=== PATIENT | male | born 1955 | race Caucasian/White ===

== ENCOUNTER 2018-03-01 09:00 | Inpatient (IN) | payer OTHER ==
[2018-03-01] MEDS ORDERED: BALSAM PERU/CASTOR OIL 60 GM TUBE TOP (12:00)
[2018-03-01] MEDS ORDERED: ALBUMIN HUMAN 25% 100 ML IV (12:00)
[2018-03-01] MEDS ORDERED: DEXTROSE 50% 50 ML SYRINGE IV (12:30)
[2018-03-01] MEDS: INSULIN HUMAN REGULAR 100 UNIT in SOD CHLORIDE 0.9% 99 ML IV ×3 (13:28→21:38)
[2018-03-01] MEDS ORDERED: SILVER SULFADIAZINE 1% 25 GM CR TOP (13:30)
[2018-03-01] MEDS: ACCU-CHEK XX ×12 (13:30→23:30)
[2018-03-01] MEDS: ALBUTEROL/IPRATROPIUM (NEB) 3 ML AMP HHN ×2 (14:00→19:08)
[2018-03-01 14:18] LABS: ADD MAN DIFF? NO
[2018-03-01 14:25] LABS: WHITE BLOOD COUNT 8.9 10^3/ul (4.8-10.8)
[2018-03-01 14:25] LABS: ABNORMAL IP MESSAGE 1; BASOPHILS % 0.1 % (0.0-2.0); EOSINOPHILS # 0.6 10^3/ul (0.0-0.5); EOSINOPHILS % 7.2 % (0.0-7.0); HEMATOCRIT 20.4 % (42.0-52.0); LYMPHOCYTES # 2.1 10^3/ul (0.8-2.9); LYMPHOCYTES % 23.4 % (15.0-51.0); MEAN CORPUSCULAR HEMOGLOBIN 30.3 pg (29.0-33.0); MEAN CORPUSCULAR HGB CONC 32.4 g/dl (32.0-37.0); MEAN CORPUSCULAR VOLUME 93.6 fl (82.0-101.0); MONOCYTE # 0.8 10^3/ul (0.3-0.9); NEUTROPHIL # 5.3 10^3/ul (1.6-7.5); NEUTROPHILS % 59.8 % (39.0-77.0); NUCLEATED RED BLOOD CELLS% 0.2 /100WBC (0.0-0.0); POSITIVE DIFF @See below; RED BLOOD COUNT 2.18 10^6/ul (4.70-6.10); RED CELL DISTRIBUTION WIDTH 19.3 % (11.5-14.5)
[2018-03-01 14:34] LABS: LACTIC ACID 1.9 mmol/L (0.5-2.0)
[2018-03-01 14:35] LABS: HEMOGLOBIN 6.6 g/dl (14.0-18.0)
[2018-03-01 14:36] LABS: PLATELET COUNT 17 10^3/UL (140-415)
[2018-03-01 14:43] LABS: ALANINE AMINOTRANSFERASE 50 IU/L (13-69); ALBUMIN 2.5 g/dl (3.3-4.9); ALBUMIN/GLOBULIN RATIO 0.89; ALKALINE PHOSPHATASE 550 IU/L (42-121); ANION GAP 13 (8-16); ASPARTATE AMINO TRANSFERASE 53 IU/L (15-46); BILIRUBIN,INDIRECT 0.2 mg/dl (0-1.1); BILIRUBIN,TOTAL 0.2 mg/dl (0.2-1.3); BLOOD UREA NITROGEN 101 mg/dl (7-20); CALCIUM 8.9 mg/dl (8.4-10.2); CARBON DIOXIDE 33 mmol/L (21-31); CHLORIDE 102 mmol/L (97-110); CREATININE 0.88 mg/dl (0.61-1.24); INR 1.14; MAGNESIUM 3.5 mg/dl (1.7-2.5); PHOSPHORUS 4.8 mg/dl (2.5-4.9); POTASSIUM 3.3 mmol/L (3.5-5.1); PROTIME 14.8 Sec (11.9-14.9); PT RATIO 1.2; SODIUM 145 mmol/L (135-144); TOTAL PROTEIN 5.3 g/dl (6.1-8.1)
[2018-03-01] MEDS: ARTIFICIAL TEARS 15 ML OPH BOTH EYES ×3 (14:44→21:02)
[2018-03-01] MEDS: SOD CHLORIDE 0.9% 1,000 ML IV (14:50)
[2018-03-01 15:00] LABS: GLUCOSE 431 mg/dl (70-220)
[2018-03-01] MEDS: SOD CHLORIDE 0.9% 250 ML IV* (15:58)
[2018-03-01] MEDS: SILVER SULFADIAZINE 1% 25 GM CR TOP (17:29)
[2018-03-01] MEDS: PANTOPRAZOLE 40 MG INJ IV (18:28)
[2018-03-01] MEDS: LACTULOSE 30ML CUP GTB (21:03)
[2018-03-01] MEDS: BALSAM PERU/CASTOR OIL 60 GM TUBE TOP (21:03)
[2018-03-01] MEDS: RIFAXIMIN 550 MG TAB PO (21:03)
[2018-03-01] MEDS: DIPHENHYDRAMINE 1%/ZINC 28.3 GM CR TOP (21:03)
[2018-03-01] MEDS: CHLORHEXIDINE GLUCONATE 15 ML UD CUP MT (21:03)
[2018-03-01] MEDS: ACYCLOVIR 400 MG TAB GTB (21:04)
[2018-03-01] MEDS: METOPROLOL 25 MG TAB GTB (21:04)
[2018-03-01] MEDS: MICONAZOLE 2% 30 GM CR TOP (21:04)
[2018-03-01] MEDS: ZOLPIDEM 5 MG TAB PO (21:04)
[2018-03-01 21:54] LABS: TYPE AND SCREEN 1
[2018-03-02] MEDS: ACCU-CHEK XX ×9 (00:38→09:30)
[2018-03-02] MEDS: DEXTROSE 50% 50 ML SYRINGE IV (00:41)
[2018-03-02] MEDS: ALBUTEROL/IPRATROPIUM (NEB) 3 ML AMP HHN ×4 (01:23→19:25)
[2018-03-02 05:37] LABS: ADD MAN DIFF? NO
[2018-03-02 05:47] LABS: BASOPHILS % 0.2 % (0.0-2.0); EOSINOPHILS # 0.7 10^3/ul (0.0-0.5); EOSINOPHILS % 5.3 % (0.0-7.0); HEMATOCRIT 25.5 % (42.0-52.0); HEMOGLOBIN 8.5 g/dl (14.0-18.0); LYMPHOCYTES # 3.2 10^3/ul (0.8-2.9); LYMPHOCYTES % 25.1 % (15.0-51.0); MEAN CORPUSCULAR HEMOGLOBIN 30.4 pg (29.0-33.0); MEAN CORPUSCULAR HGB CONC 33.3 g/dl (32.0-37.0); MEAN CORPUSCULAR VOLUME 91.1 fl (82.0-101.0); MEAN PLATELET VOLUME 10.4 fl (7.4-10.4); MONOCYTE # 1.1 10^3/ul (0.3-0.9); MONOCYTES % 8.9 % (0.0-11.0); NEUTROPHIL # 7.6 10^3/ul (1.6-7.5); NEUTROPHILS % 60.1 % (39.0-77.0); NUCLEATED RED BLOOD CELLS% 0.3 /100WBC (0.0-0.0); PLATELET COUNT 120 10^3/UL (140-415); RED CELL DISTRIBUTION WIDTH 17.5 % (11.5-14.5)
[2018-03-02 05:47] LABS: WHITE BLOOD COUNT 12.6 10^3/ul (4.8-10.8)
[2018-03-02] MEDS: PANTOPRAZOLE 40 MG INJ IV ×2 (05:55→20:30)
[2018-03-02] MEDS: LEVOTHYROXINE 25 MCG TAB GTB (05:55)
[2018-03-02] MEDS: FUROSEMIDE 40 MG TAB PO ×2 (06:00→17:16)
[2018-03-02 06:30] LABS: ANION GAP 13 (8-16); BLOOD UREA NITROGEN 95 mg/dl (7-20); CALCIUM 9.1 mg/dl (8.4-10.2); CARBON DIOXIDE 31 mmol/L (21-31); CHLORIDE 107 mmol/L (97-110); GLUCOSE 82 mg/dl (70-220); MAGNESIUM 3.5 mg/dl (1.7-2.5); PHOSPHORUS 4.7 mg/dl (2.5-4.9); SODIUM 148 mmol/L (135-144)
[2018-03-02] MEDS: FOLIC ACID 1 MG TAB GTB (08:52)
[2018-03-02] MEDS: POTASSIUM CHLORIDE 20 MEQ POWDER FOR ORAL SOLN GTB (08:52)
[2018-03-02] MEDS: LORATADINE 10 MG TAB GTB (08:53)
[2018-03-02] MEDS: CHLORHEXIDINE GLUCONATE 15 ML UD CUP MT ×2 (08:53→20:31)
[2018-03-02] MEDS: RIFAXIMIN 550 MG TAB PO ×2 (08:53→20:30)
[2018-03-02] MEDS: FLUCONAZOLE 100 MG TAB GTB (08:53)
[2018-03-02] MEDS: ACYCLOVIR 400 MG TAB GTB ×2 (08:53→20:31)
[2018-03-02] MEDS: ARTIFICIAL TEARS 15 ML OPH BOTH EYES ×4 (08:53→20:31)
[2018-03-02] MEDS: DIPHENHYDRAMINE 1%/ZINC 28.3 GM CR TOP ×2 (08:54→20:32)
[2018-03-02] MEDS: BALSAM PERU/CASTOR OIL 60 GM TUBE TOP ×2 (08:54→20:32)
[2018-03-02] MEDS: LACTULOSE 30ML CUP GTB ×2 (08:55→20:31)
[2018-03-02] MEDS: METOPROLOL 25 MG TAB GTB ×2 (08:55→20:31)
[2018-03-02] MEDS: SPIRONOLACTONE 25 MG TAB NGT (08:55)
[2018-03-02] MEDS: MICONAZOLE 2% 30 GM CR TOP ×2 (09:00→20:32)
[2018-03-02] MEDS: POTASSIUM CHLORIDE 10 MEQ in DEXTROSE 5% 1,000 ML IV (09:01)
[2018-03-02] MEDS ORDERED: GLUCOSE GEL 15 GRAM TUBE BUCCAL (13:00)
[2018-03-02] MEDS ORDERED: DEXTROSE 50% 50 ML SYRINGE IV (13:00)
[2018-03-02] MEDS ORDERED: GLUCAGON 1 MG INJ IM (13:00)
[2018-03-02] MEDS ORDERED: GLUCOSE GEL 15 GRAM TUBE PO ×2 (13:00)
[2018-03-02] MEDS: INSULIN ASPART [NOVOLOG] 3 ML PEN SC ×3 (13:30→20:44)
[2018-03-02] MEDS: BISACODYL (EC) 5 MG TAB PO (17:16)
[2018-03-02] MEDS: PEG/ELECTROLYTES 4L BTL PO ×2 (17:38→20:30)
[2018-03-03] MEDS: ALBUTEROL/IPRATROPIUM (NEB) 3 ML AMP HHN ×4 (01:56→19:19)
[2018-03-03] MEDS: ACCU-CHEK XX (02:21)
[2018-03-03] MEDS: INSULIN ASPART [NOVOLOG] 3 ML PEN SC ×6 (02:24→20:37)
[2018-03-03 05:41] LABS: ADD MAN DIFF? NO
[2018-03-03 05:54] LABS: ABNORMAL IP MESSAGE 1; BASOPHILS % 0.2 % (0.0-2.0); EOSINOPHILS # 0.7 10^3/ul (0.0-0.5); EOSINOPHILS % 6.6 % (0.0-7.0); HEMATOCRIT 23.2 % (42.0-52.0); HEMOGLOBIN 7.8 g/dl (14.0-18.0); LYMPHOCYTES # 4.3 10^3/ul (0.8-2.9); LYMPHOCYTES % 38.9 % (15.0-51.0); MEAN CORPUSCULAR HEMOGLOBIN 30.1 pg (29.0-33.0); MEAN CORPUSCULAR HGB CONC 33.6 g/dl (32.0-37.0); MEAN CORPUSCULAR VOLUME 89.6 fl (82.0-101.0); MEAN PLATELET VOLUME 11.3 fl (7.4-10.4); MONOCYTE # 1.3 10^3/ul (0.3-0.9); NEUTROPHIL # 4.6 10^3/ul (1.6-7.5); NEUTROPHILS % 41.8 % (39.0-77.0); NUCLEATED RED BLOOD CELLS% 0.3 /100WBC (0.0-0.0); PLATELET COUNT 96 10^3/UL (140-415); POSITIVE DIFF @See below; RED BLOOD COUNT 2.59 10^6/ul (4.70-6.10); RED CELL DISTRIBUTION WIDTH 18.1 % (11.5-14.5)
[2018-03-03 06:14] LABS: INR 1.16; PT RATIO 1.2
[2018-03-03 06:15] LABS: PARTIAL THROMBOPLASTIN TIME 52.6 Sec (25.0-35.0)
[2018-03-03] MEDS: POTASSIUM CHLORIDE 10 MEQ in DEXTROSE 5% 1,000 ML IV (06:19)
[2018-03-03] MEDS: FUROSEMIDE 40 MG TAB PO ×2 (06:19→18:11)
[2018-03-03] MEDS: LEVOTHYROXINE 25 MCG TAB GTB (06:19)
[2018-03-03 06:35] LABS: ANION GAP 13 (8-16); BLOOD UREA NITROGEN 81 mg/dl (7-20); CALCIUM 8.8 mg/dl (8.4-10.2); CARBON DIOXIDE 30 mmol/L (21-31); CHLORIDE 105 mmol/L (97-110); CREATININE 0.81 mg/dl (0.61-1.24); GLUCOSE 157 mg/dl (70-220); MAGNESIUM 3.3 mg/dl (1.7-2.5); PHOSPHORUS 4.4 mg/dl (2.5-4.9); POTASSIUM 3.3 mmol/L (3.5-5.1); SODIUM 145 mmol/L (135-144)
[2018-03-03] MEDS ORDERED: ATROPINE 1 MG/10 ML SYRINGE (07:00)
[2018-03-03] MEDS ORDERED: EPINEPHrine 0.1 MG/ML SYG (07:00)
[2018-03-03] MEDS ORDERED: GLUCAGON 1 MG INJ (07:00)
[2018-03-03 07:46] LABS: AADO2 Arterial 82.3 mmHg (7.0-24.0); Allen Test ACCEPTAB; Arterial Base Excess 3.2 mmol/L (-3.0-3); Arterial Blood Gas Oxygen Sat 96.2 mmHG (95.0-98.0); Arterial COHb 0.1 % (0.0-3.0); Arterial Fraction of Oxyhgb 95.6 % (93.0-99.0); Arterial MetHb 0.5 % (0.0-1.5); Arterial Total Hemglobin 8.3 g/dl (12.0-18.0); Arterial pCO2 32.4 mmhg (35-45); MODE VENT - AC; Site Right Radial
[2018-03-03] MEDS: POTASSIUM CHLORIDE 100 ML IVPB (08:58)
[2018-03-03] MEDS: MICONAZOLE 2% 30 GM CR TOP ×2 (08:58→20:39)
[2018-03-03] MEDS: BALSAM PERU/CASTOR OIL 60 GM TUBE TOP ×2 (08:58→20:34)
[2018-03-03] MEDS: DIPHENHYDRAMINE 1%/ZINC 28.3 GM CR TOP ×2 (08:59→20:33)
[2018-03-03] MEDS: ARTIFICIAL TEARS 15 ML OPH BOTH EYES ×4 (08:59→20:33)
[2018-03-03] MEDS: METOLAZONE 5 MG TAB PO (09:00)
[2018-03-03] MEDS: PROPOFOL 60 ML (09:00)
[2018-03-03] MEDS: CHLORHEXIDINE GLUCONATE 15 ML UD CUP MT ×2 (09:00→20:33)
[2018-03-03] MEDS: POTASSIUM CHLORIDE 30 MEQ in DEXTROSE 5% 1,000 ML IV (10:34)
[2018-03-03] MEDS: oxyCODONE 5 MG TAB PO ×2 (10:34→19:34)
[2018-03-03] MEDS: RIFAXIMIN 550 MG TAB PO ×2 (10:34→20:34)
[2018-03-03] MEDS: METOPROLOL 25 MG TAB GTB ×2 (10:35→20:34)
[2018-03-03] MEDS: FOLIC ACID 1 MG TAB GTB (10:35)
[2018-03-03] MEDS: ACETAZOLAMIDE 500 MG INJ IV (10:35)
[2018-03-03] MEDS: SPIRONOLACTONE 25 MG TAB NGT (10:35)
[2018-03-03] MEDS: FLUCONAZOLE 100 MG TAB GTB (10:35)
[2018-03-03] MEDS: LORATADINE 10 MG TAB GTB (10:35)
[2018-03-03] MEDS: ACYCLOVIR 400 MG TAB GTB ×2 (10:35→20:34)
[2018-03-03] MEDS: PANTOPRAZOLE 40 MG INJ IV ×2 (10:36→20:33)
[2018-03-03] MEDS: LACTULOSE 30ML CUP GTB ×2 (10:38→20:33)
[2018-03-03] MEDS: LIDOCAINE 2% (SDV) 5 ML INJ (11:40)
[2018-03-03] MEDS: DESMOPRESSIN 20 MCG in SOD CHLORIDE 0.9% 50 ML IVPB (11:46)
[2018-03-03] MEDS: SILVER SULFADIAZINE 1% 25 GM CR TOP ×2 (13:23→20:33)
[2018-03-03] MEDS: ALBUMIN HUMAN 25% 100 ML IV ×2 (16:57→18:12)
[2018-03-04] MEDS: ALBUTEROL/IPRATROPIUM (NEB) 3 ML AMP HHN ×4 (01:12→19:53)
[2018-03-04] MEDS: INSULIN ASPART [NOVOLOG] 3 ML PEN SC ×6 (01:26→20:55)
[2018-03-04] MEDS: ACCU-CHEK XX (01:27)
[2018-03-04 03:35] LABS: ADD MAN DIFF? NO
[2018-03-04 03:43] LABS: WHITE BLOOD COUNT 9.2 10^3/ul (4.8-10.8)
[2018-03-04 03:43] LABS: ABNORMAL IP MESSAGE 1; BASOPHILS % 0.1 % (0.0-2.0); EOSINOPHILS # 0.6 10^3/ul (0.0-0.5); EOSINOPHILS % 6.6 % (0.0-7.0); HEMATOCRIT 21.3 % (42.0-52.0); LYMPHOCYTES # 4.1 10^3/ul (0.8-2.9); LYMPHOCYTES % 44.1 % (15.0-51.0); MEAN CORPUSCULAR HEMOGLOBIN 29.3 pg (29.0-33.0); MEAN CORPUSCULAR HGB CONC 31.5 g/dl (32.0-37.0); MEAN PLATELET VOLUME 11.1 fl (7.4-10.4); MONOCYTE # 0.7 10^3/ul (0.3-0.9); MONOCYTES % 7.5 % (0.0-11.0); NEUTROPHIL # 3.8 10^3/ul (1.6-7.5); NEUTROPHILS % 41.4 % (39.0-77.0); NUCLEATED RED BLOOD CELLS% 0.3 /100WBC (0.0-0.0); POSITIVE DIFF @See below; RED BLOOD COUNT 2.29 10^6/ul (4.70-6.10); RED CELL DISTRIBUTION WIDTH 17.9 % (11.5-14.5)
[2018-03-04 03:46] LABS: PLATELET COUNT 72 10^3/UL (140-415)
[2018-03-04 03:48] LABS: HEMOGLOBIN 6.7 g/dl (14.0-18.0)
[2018-03-04 03:56] LABS: ANION GAP 13 (8-16); BLOOD UREA NITROGEN 74 mg/dl (7-20); CALCIUM 8.8 mg/dl (8.4-10.2); CARBON DIOXIDE 26 mmol/L (21-31); CHLORIDE 106 mmol/L (97-110); CREATININE 0.89 mg/dl (0.61-1.24); GLUCOSE 213 mg/dl (70-220); PHOSPHORUS 4.4 mg/dl (2.5-4.9); POTASSIUM 3.2 mmol/L (3.5-5.1); SODIUM 142 mmol/L (135-144)
[2018-03-04 04:45] LABS: IMMEDIATE SPIN CROSSMATCH 1 4
[2018-03-04] MEDS: LEVOTHYROXINE 25 MCG TAB GTB (05:24)
[2018-03-04] MEDS: FUROSEMIDE 40 MG TAB PO (05:40)
[2018-03-04] MEDS: POTASSIUM CHLORIDE 30 MEQ in DEXTROSE 5% 1,000 ML IV (06:11)
[2018-03-04] MEDS: MICONAZOLE 2% 30 GM CR TOP ×2 (09:00→20:38)
[2018-03-04] MEDS: METOPROLOL 25 MG TAB GTB ×2 (09:00→20:35)
[2018-03-04] MEDS: FLUCONAZOLE 100 MG TAB GTB (10:44)
[2018-03-04] MEDS: ACYCLOVIR 400 MG TAB GTB ×2 (10:44→20:35)
[2018-03-04] MEDS: LORATADINE 10 MG TAB GTB (10:44)
[2018-03-04] MEDS: LACTULOSE 30ML CUP GTB ×2 (10:44→20:34)
[2018-03-04] MEDS: PANTOPRAZOLE 40 MG INJ IV ×2 (10:45→20:35)
[2018-03-04] MEDS: RIFAXIMIN 550 MG TAB PO ×2 (10:45→20:35)
[2018-03-04] MEDS: SPIRONOLACTONE 25 MG TAB NGT (10:45)
[2018-03-04] MEDS: FOLIC ACID 1 MG TAB GTB (10:45)
[2018-03-04] MEDS: CHLORHEXIDINE GLUCONATE 15 ML UD CUP MT ×2 (10:45→20:35)
[2018-03-04] MEDS: ARTIFICIAL TEARS 15 ML OPH BOTH EYES ×4 (10:45→20:34)
[2018-03-04] MEDS: BALSAM PERU/CASTOR OIL 60 GM TUBE TOP ×2 (10:46→20:39)
[2018-03-04] MEDS: DIPHENHYDRAMINE 1%/ZINC 28.3 GM CR TOP ×2 (10:46→20:37)
[2018-03-04] MEDS: INSULIN GLARGINE [LANtus] 3 ML PEN SC (10:48)
[2018-03-04] MEDS: POTASSIUM CHLORIDE 100 ML IVPB ×2 (10:56→16:39)
[2018-03-04] MEDS: oxyCODONE 5 MG TAB PO (10:56)
[2018-03-04 12:47] LABS: IMMEDIATE SPIN CROSSMATCH 1 1
[2018-03-04 14:56] LABS: ADD MAN DIFF? NO
[2018-03-04 15:00] LABS: WHITE BLOOD COUNT 9.1 10^3/ul (4.8-10.8)
[2018-03-04 15:00] LABS: ABNORMAL IP MESSAGE 1; BASOPHILS % 0.1 % (0.0-2.0); EOSINOPHILS # 0.6 10^3/ul (0.0-0.5); HEMATOCRIT 28.9 % (42.0-52.0); HEMOGLOBIN 9.4 g/dl (14.0-18.0); LYMPHOCYTES # 3.3 10^3/ul (0.8-2.9); LYMPHOCYTES % 35.8 % (15.0-51.0); MEAN CORPUSCULAR HEMOGLOBIN 29.8 pg (29.0-33.0); MEAN CORPUSCULAR HGB CONC 32.5 g/dl (32.0-37.0); MEAN CORPUSCULAR VOLUME 91.7 fl (82.0-101.0); MEAN PLATELET VOLUME 10.6 fl (7.4-10.4); MONOCYTE # 0.5 10^3/ul (0.3-0.9); MONOCYTES % 5.7 % (0.0-11.0); NEUTROPHIL # 4.7 10^3/ul (1.6-7.5); NEUTROPHILS % 51.9 % (39.0-77.0); NUCLEATED RED BLOOD CELLS% 0.4 /100WBC (0.0-0.0); PLATELET COUNT 62 10^3/UL (140-415); POSITIVE DIFF @See below; RED BLOOD COUNT 3.15 10^6/ul (4.70-6.10); RED CELL DISTRIBUTION WIDTH 17.2 % (11.5-14.5)
[2018-03-04] MEDS ORDERED: POTASSIUM CHLORIDE 100 ML IVPB (16:38)
[2018-03-05] MEDS: INSULIN ASPART [NOVOLOG] 3 ML PEN SC ×6 (01:11→21:00)
[2018-03-05] MEDS: ALBUTEROL/IPRATROPIUM (NEB) 3 ML AMP HHN ×4 (01:28→19:59)
[2018-03-05] MEDS: POTASSIUM CHLORIDE 30 MEQ in DEXTROSE 5% 1,000 ML IV (02:00)
[2018-03-05 05:22] LABS: ADD MAN DIFF? NO
[2018-03-05 05:29] LABS: WHITE BLOOD COUNT 10.6 10^3/ul (4.8-10.8)
[2018-03-05 05:29] LABS: ABNORMAL IP MESSAGE 1; BASOPHILS % 0.1 % (0.0-2.0); EOSINOPHILS # 0.6 10^3/ul (0.0-0.5); EOSINOPHILS % 5.2 % (0.0-7.0); LYMPHOCYTES # 3.9 10^3/ul (0.8-2.9); LYMPHOCYTES % 36.8 % (15.0-51.0); MEAN CORPUSCULAR HGB CONC 33.3 g/dl (32.0-37.0); MONOCYTE # 0.9 10^3/ul (0.3-0.9); MONOCYTES % 8.6 % (0.0-11.0); NEUTROPHIL # 5.2 10^3/ul (1.6-7.5); NEUTROPHILS % 48.7 % (39.0-77.0); NUCLEATED RED BLOOD CELLS% 0.2 /100WBC (0.0-0.0); PLATELET COUNT 54 10^3/UL (140-415); POSITIVE DIFF @See below; RED CELL DISTRIBUTION WIDTH 17.1 % (11.5-14.5)
[2018-03-05] MEDS: LEVOTHYROXINE 25 MCG TAB GTB (05:35)
[2018-03-05 05:46] LABS: ANION GAP 17 (8-16); BLOOD UREA NITROGEN 83 mg/dl (7-20); CALCIUM 9.1 mg/dl (8.4-10.2); CARBON DIOXIDE 26 mmol/L (21-31); CHLORIDE 100 mmol/L (97-110); CREATININE 0.95 mg/dl (0.61-1.24); GLUCOSE 197 mg/dl (70-220); MAGNESIUM 3.1 mg/dl (1.7-2.5); PHOSPHORUS 4.8 mg/dl (2.5-4.9); POTASSIUM 4.6 mmol/L (3.5-5.1); SODIUM 138 mmol/L (135-144)
[2018-03-05] MEDS: METOPROLOL 25 MG TAB GTB ×2 (08:23→22:13)
[2018-03-05] MEDS: LACTULOSE 30ML CUP GTB ×2 (08:49→22:12)
[2018-03-05] MEDS: PANTOPRAZOLE 40 MG INJ IV ×2 (08:50→22:13)
[2018-03-05] MEDS: ACETAZOLAMIDE 500 MG INJ IV (08:50)
[2018-03-05] MEDS: CHLORHEXIDINE GLUCONATE 15 ML UD CUP MT ×2 (08:50→22:12)
[2018-03-05] MEDS: FOLIC ACID 1 MG TAB GTB (08:51)
[2018-03-05] MEDS: LORATADINE 10 MG TAB GTB (08:51)
[2018-03-05] MEDS: RIFAXIMIN 550 MG TAB PO ×2 (08:51→22:12)
[2018-03-05] MEDS: FUROSEMIDE 40 MG TAB PO ×2 (08:51→18:42)
[2018-03-05] MEDS: FLUCONAZOLE 100 MG TAB GTB (08:51)
[2018-03-05] MEDS: ARTIFICIAL TEARS 15 ML OPH BOTH EYES ×4 (08:52→22:16)
[2018-03-05] MEDS: ACYCLOVIR 400 MG TAB GTB (08:52)
[2018-03-05] MEDS: MICONAZOLE 2% 30 GM CR TOP ×2 (08:53→22:27)
[2018-03-05] MEDS: DIPHENHYDRAMINE 1%/ZINC 28.3 GM CR TOP ×2 (08:54→22:15)
[2018-03-05] MEDS: BALSAM PERU/CASTOR OIL 60 GM TUBE TOP ×2 (08:54→22:15)
[2018-03-05] MEDS: INSULIN GLARGINE [LANtus] 3 ML PEN SC (08:56)
[2018-03-05] MEDS: SPIRONOLACTONE 25 MG TAB NGT (09:10)
[2018-03-05] MEDS: SILVER SULFADIAZINE 1% 25 GM CR TOP (13:44)
[2018-03-06] MEDS: ACYCLOVIR 400 MG TAB GTB ×3 (00:28→22:05)
[2018-03-06] MEDS: INSULIN ASPART [NOVOLOG] 3 ML PEN SC ×6 (01:00→21:00)
[2018-03-06] MEDS: ALBUTEROL/IPRATROPIUM (NEB) 3 ML AMP HHN ×4 (01:13→21:00)
[2018-03-06] MEDS: LEVOTHYROXINE 25 MCG TAB GTB (06:18)
[2018-03-06] MEDS: FUROSEMIDE 40 MG TAB PO (06:27)
[2018-03-06 06:38] LABS: ADD MAN DIFF? NO
[2018-03-06 06:41] LABS: ABNORMAL IP MESSAGE 1; BASOPHILS % 0.1 % (0.0-2.0); EOSINOPHILS # 0.5 10^3/ul (0.0-0.5); EOSINOPHILS % 5.3 % (0.0-7.0); HEMATOCRIT 26.9 % (42.0-52.0); HEMOGLOBIN 8.5 g/dl (14.0-18.0); LYMPHOCYTES # 2.9 10^3/ul (0.8-2.9); LYMPHOCYTES % 31.3 % (15.0-51.0); MEAN CORPUSCULAR HEMOGLOBIN 29.1 pg (29.0-33.0); MEAN CORPUSCULAR HGB CONC 31.6 g/dl (32.0-37.0); MEAN CORPUSCULAR VOLUME 92.1 fl (82.0-101.0); MEAN PLATELET VOLUME 10.9 fl (7.4-10.4); MONOCYTE # 0.7 10^3/ul (0.3-0.9); MONOCYTES % 7.6 % (0.0-11.0); NEUTROPHIL # 5.2 10^3/ul (1.6-7.5); NEUTROPHILS % 55.3 % (39.0-77.0); NUCLEATED RED BLOOD CELLS% 0.4 /100WBC (0.0-0.0); POSITIVE DIFF @See below; RED BLOOD COUNT 2.92 10^6/ul (4.70-6.10); RED CELL DISTRIBUTION WIDTH 17.5 % (11.5-14.5)
[2018-03-06 06:41] LABS: WHITE BLOOD COUNT 9.3 10^3/ul (4.8-10.8)
[2018-03-06 06:50] LABS: PLATELET COUNT 32 10^3/UL (140-415)
[2018-03-06 07:44] LABS: ANION GAP 16 (8-16); BLOOD UREA NITROGEN 79 mg/dl (7-20); CARBON DIOXIDE 25 mmol/L (21-31); CHLORIDE 100 mmol/L (97-110); GLUCOSE 148 mg/dl (70-220); MAGNESIUM 3.2 mg/dl (1.7-2.5); PHOSPHORUS 5.1 mg/dl (2.5-4.9); POTASSIUM 4.1 mmol/L (3.5-5.1); SODIUM 137 mmol/L (135-144)
[2018-03-06] MEDS: ARTIFICIAL TEARS 15 ML OPH BOTH EYES ×4 (08:47→21:00)
[2018-03-06] MEDS: LORATADINE 10 MG TAB GTB ×2 (08:47→22:05)
[2018-03-06] MEDS: FLUCONAZOLE 100 MG TAB GTB (08:47)
[2018-03-06] MEDS: SPIRONOLACTONE 25 MG TAB NGT (08:47)
[2018-03-06] MEDS: CHLORHEXIDINE GLUCONATE 15 ML UD CUP MT ×2 (08:47→22:04)
[2018-03-06] MEDS: PANTOPRAZOLE 40 MG INJ IV ×2 (08:47→22:07)
[2018-03-06] MEDS: LACTULOSE 30ML CUP GTB ×2 (08:47→22:04)
[2018-03-06] MEDS: RIFAXIMIN 550 MG TAB PO ×2 (08:47→22:04)
[2018-03-06] MEDS: INSULIN GLARGINE [LANtus] 3 ML PEN SC (08:55)
[2018-03-06] MEDS: METOPROLOL 25 MG TAB GTB ×2 (09:00→21:00)
[2018-03-06] MEDS: FOLIC ACID 1 MG TAB GTB (09:11)
[2018-03-06] MEDS: MICONAZOLE 2% 30 GM CR TOP ×2 (09:12→21:00)
[2018-03-06] MEDS: DIPHENHYDRAMINE 1%/ZINC 28.3 GM CR TOP ×2 (09:12→21:00)
[2018-03-06] MEDS: BALSAM PERU/CASTOR OIL 60 GM TUBE TOP ×2 (09:12→21:00)
[2018-03-06] MEDS: ACETAZOLAMIDE 500 MG INJ IV (09:46)
[2018-03-06] MEDS: MIDODRINE 5 MG TAB PO ×2 (12:11→17:20)
[2018-03-06 13:02] LABS: TYPE AND SCREEN 1
[2018-03-06] MEDS: SOD CHLORIDE 0.9% 250 ML IV (14:13)
[2018-03-06 14:41] LABS: ADD MAN DIFF? NO
[2018-03-06 14:44] LABS: WHITE BLOOD COUNT 10.2 10^3/ul (4.8-10.8)
[2018-03-06 14:44] LABS: ABNORMAL IP MESSAGE 1; BASOPHILS % 0.1 % (0.0-2.0); EOSINOPHILS # 0.4 10^3/ul (0.0-0.5); EOSINOPHILS % 3.6 % (0.0-7.0); HEMATOCRIT 26.2 % (42.0-52.0); HEMOGLOBIN 8.4 g/dl (14.0-18.0); LYMPHOCYTES # 1.9 10^3/ul (0.8-2.9); LYMPHOCYTES % 18.4 % (15.0-51.0); MEAN CORPUSCULAR HEMOGLOBIN 29.9 pg (29.0-33.0); MEAN CORPUSCULAR HGB CONC 32.1 g/dl (32.0-37.0); MEAN CORPUSCULAR VOLUME 93.2 fl (82.0-101.0); MEAN PLATELET VOLUME 10.2 fl (7.4-10.4); MONOCYTE # 0.6 10^3/ul (0.3-0.9); MONOCYTES % 5.4 % (0.0-11.0); NEUTROPHIL # 7.3 10^3/ul (1.6-7.5); NEUTROPHILS % 71.9 % (39.0-77.0); NUCLEATED RED BLOOD CELLS # 0.1 10^3/ul (0.0-0.0); NUCLEATED RED BLOOD CELLS% 0.6 /100WBC (0.0-0.0); PLATELET COUNT 57 10^3/UL (140-415); POSITIVE DIFF @See below; RED BLOOD COUNT 2.81 10^6/ul (4.70-6.10); RED CELL DISTRIBUTION WIDTH 17.6 % (11.5-14.5)
[2018-03-06 15:01] LABS: LACTIC ACID 0.8 mmol/L (0.5-2.0)
[2018-03-06 15:02] LABS: ANION GAP 13 (8-16); BLOOD UREA NITROGEN 78 mg/dl (7-20); CARBON DIOXIDE 25 mmol/L (21-31); CHLORIDE 103 mmol/L (97-110); CREATININE 0.98 mg/dl (0.61-1.24); GLUCOSE 139 mg/dl (70-220); POTASSIUM 3.9 mmol/L (3.5-5.1); SODIUM 137 mmol/L (135-144)
[2018-03-06 15:14] LABS: TROPONIN-I 0.015 ng/ml (0.000-0.120)
[2018-03-06] MEDS: BUMETANIDE 1 MG INJ IV (17:19)
[2018-03-07] MEDS: INSULIN ASPART [NOVOLOG] 3 ML PEN SC ×6 (01:00→21:00)
[2018-03-07] MEDS: ALBUTEROL/IPRATROPIUM (NEB) 3 ML AMP HHN ×4 (02:17→19:45)
[2018-03-07] MEDS: LEVOTHYROXINE 25 MCG TAB GTB (06:55)
[2018-03-07] MEDS: BUMETANIDE 1 MG INJ IV ×2 (06:55→16:45)
[2018-03-07 08:44] LABS: ADD MAN DIFF? NO
[2018-03-07 08:53] LABS: ABNORMAL IP MESSAGE 1; BASOPHILS % 0.1 % (0.0-2.0); EOSINOPHILS # 0.4 10^3/ul (0.0-0.5); EOSINOPHILS % 3.6 % (0.0-7.0); HEMATOCRIT 26.4 % (42.0-52.0); HEMOGLOBIN 8.3 g/dl (14.0-18.0); LYMPHOCYTES # 2.9 10^3/ul (0.8-2.9); LYMPHOCYTES % 26.7 % (15.0-51.0); MEAN CORPUSCULAR HEMOGLOBIN 29.5 pg (29.0-33.0); MEAN CORPUSCULAR HGB CONC 31.4 g/dl (32.0-37.0); MONOCYTE # 0.9 10^3/ul (0.3-0.9); MONOCYTES % 8.4 % (0.0-11.0); NEUTROPHIL # 6.7 10^3/ul (1.6-7.5); NEUTROPHILS % 60.7 % (39.0-77.0); NUCLEATED RED BLOOD CELLS # 0.2 10^3/ul (0.0-0.0); NUCLEATED RED BLOOD CELLS% 2.2 /100WBC (0.0-0.0); POSITIVE DIFF @See below; RED BLOOD COUNT 2.81 10^6/ul (4.70-6.10); RED CELL DISTRIBUTION WIDTH 18.1 % (11.5-14.5)
[2018-03-07] MEDS: METOPROLOL 25 MG TAB GTB ×2 (09:00→21:00)
[2018-03-07 09:14] LABS: ANION GAP 11 (8-16); BLOOD UREA NITROGEN 72 mg/dl (7-20); CARBON DIOXIDE 25 mmol/L (21-31); CHLORIDE 104 mmol/L (97-110); CREATININE 1.01 mg/dl (0.61-1.24); GLUCOSE 92 mg/dl (70-220); MAGNESIUM 3.2 mg/dl (1.7-2.5); PHOSPHORUS 5.3 mg/dl (2.5-4.9); POTASSIUM 3.3 mmol/L (3.5-5.1); SODIUM 137 mmol/L (135-144)
[2018-03-07] MEDS: FLUCONAZOLE 100 MG TAB GTB (09:18)
[2018-03-07] MEDS: ACYCLOVIR 400 MG TAB GTB ×2 (09:18→21:12)
[2018-03-07 09:19] LABS: PLATELET COUNT 37 10^3/UL (140-415)
[2018-03-07] MEDS: CHLORHEXIDINE GLUCONATE 15 ML UD CUP MT ×2 (09:19→21:12)
[2018-03-07] MEDS: FOLIC ACID 1 MG TAB GTB (09:19)
[2018-03-07] MEDS: LACTULOSE 30ML CUP GTB ×2 (09:19→21:11)
[2018-03-07] MEDS: ACETAZOLAMIDE 500 MG INJ IV (09:19)
[2018-03-07] MEDS: SPIRONOLACTONE 25 MG TAB NGT (09:19)
[2018-03-07] MEDS: PANTOPRAZOLE 40 MG INJ IV ×2 (09:19→21:12)
[2018-03-07] MEDS: RIFAXIMIN 550 MG TAB PO ×2 (09:19→21:00)
[2018-03-07] MEDS: BALSAM PERU/CASTOR OIL 60 GM TUBE TOP ×2 (09:21→21:13)
[2018-03-07] MEDS: MIDODRINE 5 MG TAB PO ×3 (09:21→16:45)
[2018-03-07] MEDS: DIPHENHYDRAMINE 1%/ZINC 28.3 GM CR TOP ×2 (09:22→21:13)
[2018-03-07] MEDS: INSULIN GLARGINE [LANtus] 3 ML PEN SC (09:31)
[2018-03-07] MEDS: MICONAZOLE 2% 30 GM CR TOP ×2 (09:33→21:14)
[2018-03-07] MEDS: ARTIFICIAL TEARS 15 ML OPH BOTH EYES ×4 (09:33→21:11)
[2018-03-07] MEDS: SILVER SULFADIAZINE 1% 25 GM CR TOP (12:22)
[2018-03-08] MEDS: INSULIN ASPART [NOVOLOG] 3 ML PEN SC ×6 (01:00→21:53)
[2018-03-08] MEDS: ALBUTEROL/IPRATROPIUM (NEB) 3 ML AMP HHN ×4 (01:54→19:51)
[2018-03-08] MEDS: BUMETANIDE 1 MG INJ IV ×2 (05:10→16:38)
[2018-03-08] MEDS: LEVOTHYROXINE 25 MCG TAB GTB (05:13)
[2018-03-08 06:51] LABS: ABNORMAL IP MESSAGE 1; HEMATOCRIT 24.9 % (42.0-52.0); HEMOGLOBIN 7.7 g/dl (14.0-18.0); MEAN CORPUSCULAR HEMOGLOBIN 29.6 pg (29.0-33.0); MEAN CORPUSCULAR HGB CONC 30.9 g/dl (32.0-37.0); MEAN CORPUSCULAR VOLUME 95.8 fl (82.0-101.0); MEAN PLATELET VOLUME 11.8 fl (7.4-10.4); POSITIVE DIFF @See below; RED CELL DISTRIBUTION WIDTH 18.2 % (11.5-14.5)
[2018-03-08 06:51] LABS: WHITE BLOOD COUNT 11.4 10^3/ul (4.8-10.8)
[2018-03-08 07:13] LABS: ADD MAN DIFF? YES; PLATELET COUNT 27 10^3/UL (140-415)
[2018-03-08 08:01] LABS: ANION GAP 13 (8-16); BLOOD UREA NITROGEN 74 mg/dl (7-20); CARBON DIOXIDE 27 mmol/L (21-31); CHLORIDE 102 mmol/L (97-110); CREATININE 1.09 mg/dl (0.61-1.24); GLUCOSE 132 mg/dl (70-220); MAGNESIUM 3.4 mg/dl (1.7-2.5); PHOSPHORUS 5.7 mg/dl (2.5-4.9); SODIUM 139 mmol/L (135-144)
[2018-03-08] MEDS: FOLIC ACID 1 MG TAB GTB (08:48)
[2018-03-08] MEDS: LACTULOSE 30ML CUP GTB ×2 (08:48→21:50)
[2018-03-08] MEDS: ACYCLOVIR 400 MG TAB GTB (08:48)
[2018-03-08] MEDS: RIFAXIMIN 550 MG TAB PO ×2 (08:48→21:51)
[2018-03-08] MEDS: FLUCONAZOLE 100 MG TAB GTB (08:48)
[2018-03-08] MEDS: PANTOPRAZOLE 40 MG INJ IV ×2 (08:48→21:50)
[2018-03-08] MEDS: CHLORHEXIDINE GLUCONATE 15 ML UD CUP MT ×2 (08:48→21:50)
[2018-03-08] MEDS: LORATADINE 10 MG TAB GTB (08:48)
[2018-03-08] MEDS: SPIRONOLACTONE 25 MG TAB NGT (08:48)
[2018-03-08] MEDS: MIDODRINE 5 MG TAB PO ×3 (08:48→16:38)
[2018-03-08] MEDS: ACETAZOLAMIDE 500 MG INJ IV (08:49)
[2018-03-08] MEDS: BALSAM PERU/CASTOR OIL 60 GM TUBE TOP ×2 (08:49→21:51)
[2018-03-08] MEDS: ARTIFICIAL TEARS 15 ML OPH BOTH EYES ×4 (08:49→21:50)
[2018-03-08] MEDS: DIPHENHYDRAMINE 1%/ZINC 28.3 GM CR TOP ×2 (08:50→21:51)
[2018-03-08] MEDS: METOPROLOL 25 MG TAB GTB ×2 (09:00→21:00)
[2018-03-08] MEDS: INSULIN GLARGINE [LANtus] 3 ML PEN SC (09:05)
[2018-03-08] MEDS: MICONAZOLE 2% 30 GM CR TOP ×2 (09:06→21:51)
[2018-03-08 09:42] LABS: BAND NEUTROPHILS #M 0.1 10^3/ul (0.0-0.6); BAND NEUTROPHILS % (M) 1 % (0-4); LYMPHOCYTES #M 1.3 10^3/ul (0.8-2.9); LYMPHOCYTES % (M) 12 % (15-51); MONOCYTES % (M) 8 % (0-11); SEG NEUT #M 8.8 10^3/ul (1.6-7.5); SEGMENTED NEUTROPHILS (M) % 77 % (39-77)
[2018-03-08 09:43] LABS: ANISOCYTOSIS 1+ (0-0); BURR CELLS 2+ (0-0); EOSINOPHILS % (M) 2 % (0-7); ERYTHROBLAST% (NRBC) (M) 7 % (0-0); GIANT THROMBO% (M) 30 % (0-0); MONOCYTE #M 0.9 10^3/ul (0.3-0.9); PLATELET ESTIMATE SIG DECREASED; POIKILOCYTOSIS 2+ (0-0); POLYCHROMASIA 1+ (0-0); SMUDGE%M 20 % (0-0)
[2018-03-08] MEDS: POTASSIUM CHLORIDE (SR) 10 MEQ TAB PO (11:16)
[2018-03-08 16:52] LABS: ADD UMIC YES; UR ASCORBIC ACID NEGATIVE (NEGATIVE); UR BILIRUBIN (Dip) NEGATIVE (NEGATIVE); UR BLOOD (Dip) 2+ mg/dL (NEGATIVE); UR CLARITY SLIGHTLY CLOUDY (CLEAR); UR COLOR YELLOW (YELLOW); UR GLUCOSE (Dip) NEGATIVE (NEGATIVE); UR KETONES (Dip) NEGATIVE (NEGATIVE); UR LEUKOCYTE ESTERASE (Dip) 3+ Leu/ul (NEGATIVE); UR NITRITE (Dip) NEGATIVE (NEGATIVE); UR RBC 25 /HPF (0-5); UR SPECIFIC GRAVITY (Dip) 1.013 (1.003-1.030); UR TOTAL PROTEIN (Dip) 1+ mg/dl (NEGATIVE); UR UROBILINOGEN (Dip) NEGATIVE (NEGATIVE); UR WBC 57 /HPF (0-5)
[2018-03-08] MEDS ORDERED: ACYCLOVIR 400 MG TAB GTB (21:00)
[2018-03-08] MEDS: ACYCLOVIR 200 MG CAP GTB (21:50)
[2018-03-09] MEDS: INSULIN ASPART [NOVOLOG] 3 ML PEN SC ×6 (01:00→21:00)
[2018-03-09] MEDS: ALBUTEROL/IPRATROPIUM (NEB) 3 ML AMP HHN ×4 (02:00→20:39)
[2018-03-09] MEDS: BUMETANIDE 1 MG INJ IV ×2 (05:55→17:49)
[2018-03-09] MEDS: LEVOTHYROXINE 25 MCG TAB GTB (06:38)
[2018-03-09] MEDS: METOPROLOL 25 MG TAB GTB ×2 (09:00→21:00)
[2018-03-09] MEDS: MICONAZOLE 2% 30 GM CR TOP ×2 (09:00→22:09)
[2018-03-09] MEDS: CHLORHEXIDINE GLUCONATE 15 ML UD CUP MT ×2 (10:01→21:37)
[2018-03-09] MEDS: MIDODRINE 5 MG TAB PO ×3 (10:02→17:49)
[2018-03-09] MEDS: ACYCLOVIR 200 MG CAP GTB ×2 (10:02→21:37)
[2018-03-09] MEDS: RIFAXIMIN 550 MG TAB PO ×2 (10:02→21:37)
[2018-03-09] MEDS: FLUCONAZOLE 100 MG TAB GTB (10:03)
[2018-03-09] MEDS: SPIRONOLACTONE 25 MG TAB NGT (10:03)
[2018-03-09] MEDS: PYRIDOXINE 50 MG TAB GTB (10:03)
[2018-03-09] MEDS: FOLIC ACID 1 MG TAB GTB (10:03)
[2018-03-09] MEDS: ARTIFICIAL TEARS 15 ML OPH BOTH EYES ×4 (10:04→21:38)
[2018-03-09] MEDS: LACTULOSE 30ML CUP GTB ×2 (10:04→21:37)
[2018-03-09] MEDS: DIPHENHYDRAMINE 1%/ZINC 28.3 GM CR TOP ×2 (10:05→22:08)
[2018-03-09] MEDS: ACETAZOLAMIDE 500 MG INJ IV (10:05)
[2018-03-09] MEDS: PANTOPRAZOLE 40 MG INJ IV ×2 (10:05→21:37)
[2018-03-09] MEDS: BALSAM PERU/CASTOR OIL 60 GM TUBE TOP ×2 (10:06→22:08)
[2018-03-09] MEDS: INSULIN GLARGINE [LANtus] 3 ML PEN SC (10:19)
[2018-03-09 11:13] LABS: ABNORMAL IP MESSAGE 1; HEMOGLOBIN 7.6 g/dl (14.0-18.0); MEAN CORPUSCULAR HEMOGLOBIN 29.3 pg (29.0-33.0); MEAN CORPUSCULAR HGB CONC 30.4 g/dl (32.0-37.0); MEAN CORPUSCULAR VOLUME 96.5 fl (82.0-101.0); NUCLEATED RED BLOOD CELLS% 4.2 /100WBC (0.0-0.0); POSITIVE DIFF @See below; RED BLOOD COUNT 2.59 10^6/ul (4.70-6.10); RED CELL DISTRIBUTION WIDTH 18.8 % (11.5-14.5)
[2018-03-09 11:21] LABS: ADD MAN DIFF? YES; PLATELET COUNT 14 10^3/UL (140-415)
[2018-03-09 11:35] LABS: ANION GAP 11 (8-16); BLOOD UREA NITROGEN 69 mg/dl (7-20); CALCIUM 9.1 mg/dl (8.4-10.2); CARBON DIOXIDE 26 mmol/L (21-31); CHLORIDE 108 mmol/L (97-110); CREATININE 1.11 mg/dl (0.61-1.24); GLUCOSE 139 mg/dl (70-220); SODIUM 142 mmol/L (135-144)
[2018-03-09 12:26] LABS: ANISOCYTOSIS 1+ (0-0); EOSINOPHILS % (M) 6 % (0-7); GIANT THROMBO% (M) 1 % (0-0); LYMPHOCYTES #M 3.3 10^3/ul (0.8-2.9); LYMPHOCYTES % (M) 28 % (15-51); MONOCYTE #M 1.5 10^3/ul (0.3-0.9); MONOCYTES % (M) 13 % (0-11); PLATELET ESTIMATE SIG DECREASED; POIKILOCYTOSIS 3+ (0-0); POLYCHROMASIA 3+ (0-0); SEGMENTED NEUTROPHILS (M) % 53 % (39-77); SMUDGE%M 9 % (0-0)
[2018-03-09] MEDS: SILVER SULFADIAZINE 1% 25 GM CR TOP (13:00)
[2018-03-09] MEDS: LORATADINE 10 MG TAB GTB (13:00)
[2018-03-09 18:27] LABS: WHITE BLOOD COUNT 10.9 10^3/ul (4.8-10.8)
[2018-03-09 18:27] LABS: ABNORMAL IP MESSAGE 1; HEMATOCRIT 26.7 % (42.0-52.0); HEMOGLOBIN 8.2 g/dl (14.0-18.0); MEAN CORPUSCULAR HEMOGLOBIN 29.1 pg (29.0-33.0); MEAN CORPUSCULAR HGB CONC 30.7 g/dl (32.0-37.0); MEAN CORPUSCULAR VOLUME 94.7 fl (82.0-101.0); MEAN PLATELET VOLUME 12.5 fl (7.4-10.4); NUCLEATED RED BLOOD CELLS% 4.7 /100WBC (0.0-0.0); POSITIVE DIFF @See below; RED BLOOD COUNT 2.82 10^6/ul (4.70-6.10); RED CELL DISTRIBUTION WIDTH 18.7 % (11.5-14.5)
[2018-03-09 18:38] LABS: PLATELET COUNT 18 10^3/UL (140-415)
[2018-03-09 18:51] LABS: PROTIME 15.4 Sec (11.9-14.9); PT RATIO 1.2
[2018-03-09 19:17] LABS: ANISOCYTOSIS 1+ (0-0); EOSINOPHILS % (M) 2 % (0-7); ERYTHROBLAST% (NRBC) (M) 10 % (0-0); GIANT THROMBO% (M) 2 % (0-0); LYMPHOCYTES #M 1.3 10^3/ul (0.8-2.9); LYMPHOCYTES % (M) 12 % (15-51); METAMYELOCYTES #M 0.1 10^3/ul (0.0-0.0); METAMYELOCYTES %M 1 % (0-0); MONOCYTE #M 0.5 10^3/ul (0.3-0.9); MONOCYTES % (M) 5 % (0-11); MYELOCYTES #M 0.2 10^3/ul (0.0-0.0); MYELOCYTES % (M) 2 % (0-0); PLATELET ESTIMATE SIG DECREASED; POIKILOCYTOSIS 1+ (0-0); POLYCHROMASIA 2+ (0-0); SEGMENTED NEUTROPHILS (M) % 78 % (39-77); SMUDGE%M 9 % (0-0)
[2018-03-09] MEDS: SOD CHLORIDE 0.9% 250 ML IV* (21:45)
[2018-03-09 23:47] LABS: TYPE AND SCREEN 1
[2018-03-10] MEDS: ALBUTEROL/IPRATROPIUM (NEB) 3 ML AMP HHN ×4 (01:07→19:47)
[2018-03-10] MEDS: INSULIN ASPART [NOVOLOG] 3 ML PEN SC ×6 (01:34→21:00)
[2018-03-10 02:00] LABS: HEMOGLOBIN 7.4 g/dl (14.0-18.0)
[2018-03-10] MEDS: LEVOTHYROXINE 25 MCG TAB GTB ×2 (06:43→10:17)
[2018-03-10] MEDS: BUMETANIDE 1 MG INJ IV ×2 (06:43→17:50)
[2018-03-10 06:46] LABS: IMMEDIATE SPIN CROSSMATCH 1 3
[2018-03-10] MEDS: INSULIN GLARGINE [LANtus] 3 ML PEN SC (08:00)
[2018-03-10] MEDS: MIDODRINE 5 MG TAB PO ×3 (09:00→17:00)
[2018-03-10] MEDS: RIFAXIMIN 550 MG TAB PO ×2 (09:00→21:19)
[2018-03-10] MEDS: METOPROLOL 25 MG TAB GTB ×2 (09:00→21:00)
[2018-03-10] MEDS: MICONAZOLE 2% 30 GM CR TOP ×2 (09:00→21:22)
[2018-03-10] MEDS: ACYCLOVIR 200 MG CAP GTB ×2 (10:16→21:19)
[2018-03-10] MEDS: FOLIC ACID 1 MG TAB GTB (10:16)
[2018-03-10] MEDS: SPIRONOLACTONE 25 MG TAB NGT (10:17)
[2018-03-10] MEDS: PYRIDOXINE 50 MG TAB GTB (10:17)
[2018-03-10] MEDS: FLUCONAZOLE 100 MG TAB GTB (10:17)
[2018-03-10] MEDS: BALSAM PERU/CASTOR OIL 60 GM TUBE TOP ×2 (10:18→21:21)
[2018-03-10] MEDS: DIPHENHYDRAMINE 1%/ZINC 28.3 GM CR TOP ×2 (10:18→21:21)
[2018-03-10] MEDS: PANTOPRAZOLE 40 MG INJ IV ×2 (10:21→21:20)
[2018-03-10] MEDS: CHLORHEXIDINE GLUCONATE 15 ML UD CUP MT ×2 (10:21→21:20)
[2018-03-10] MEDS: LACTULOSE 30ML CUP GTB ×2 (10:22→21:22)
[2018-03-10] MEDS: ARTIFICIAL TEARS 15 ML OPH BOTH EYES ×4 (10:23→21:22)
[2018-03-10] MEDS: ACETAZOLAMIDE 500 MG INJ IV (10:44)
[2018-03-10 12:37] LABS: ADD MAN DIFF? NO
[2018-03-10 12:45] LABS: ABNORMAL IP MESSAGE 1; BASOPHILS % 0.1 % (0.0-2.0); EOSINOPHILS # 0.4 10^3/ul (0.0-0.5); EOSINOPHILS % 4.1 % (0.0-7.0); HEMATOCRIT 30.8 % (42.0-52.0); HEMOGLOBIN 9.7 g/dl (14.0-18.0); LYMPHOCYTES # 2.4 10^3/ul (0.8-2.9); LYMPHOCYTES % 24.9 % (15.0-51.0); MEAN CORPUSCULAR HEMOGLOBIN 28.6 pg (29.0-33.0); MEAN CORPUSCULAR HGB CONC 31.5 g/dl (32.0-37.0); MEAN CORPUSCULAR VOLUME 90.9 fl (82.0-101.0); MEAN PLATELET VOLUME 10.9 fl (7.4-10.4); MONOCYTE # 1.3 10^3/ul (0.3-0.9); MONOCYTES % 14.1 % (0.0-11.0); NEUTROPHIL # 5.3 10^3/ul (1.6-7.5); NEUTROPHILS % 56.4 % (39.0-77.0); NUCLEATED RED BLOOD CELLS # 0.5 10^3/ul (0.0-0.0); NUCLEATED RED BLOOD CELLS% 5.1 /100WBC (0.0-0.0); PLATELET COUNT 74 10^3/UL (140-415); POSITIVE DIFF @See below; RED BLOOD COUNT 3.39 10^6/ul (4.70-6.10); RED CELL DISTRIBUTION WIDTH 19.3 % (11.5-14.5)
[2018-03-10 12:45] LABS: WHITE BLOOD COUNT 9.4 10^3/ul (4.8-10.8)
[2018-03-10] MEDS: LORATADINE 10 MG TAB GTB (12:46)
[2018-03-10 13:00] LABS: ANION GAP 13 (8-16); BLOOD UREA NITROGEN 65 mg/dl (7-20); CALCIUM 9.3 mg/dl (8.4-10.2); CARBON DIOXIDE 27 mmol/L (21-31); CHLORIDE 107 mmol/L (97-110); CREATININE 1.07 mg/dl (0.61-1.24); GLUCOSE 130 mg/dl (70-220); MAGNESIUM 3.6 mg/dl (1.7-2.5); PHOSPHORUS 5.2 mg/dl (2.5-4.9); SODIUM 144 mmol/L (135-144)
[2018-03-10 13:09] LABS: POTASSIUM 2.7 mmol/L (3.5-5.1)
[2018-03-10] MEDS: POTASSIUM CHLORIDE 20 MEQ POWDER FOR ORAL SOLN GTB (15:23)
[2018-03-10] MEDS: POTASSIUM CHLORIDE 100 ML IVPB ×2 (15:31→17:17)
[2018-03-10] MEDS: MEROPENEM 500MG/50 ML (PMX) 50 ML IVPB ×2 (15:57→23:29)
[2018-03-10 17:14] LABS: HEMATOCRIT 32.4 % (42.0-52.0); HEMOGLOBIN 10.3 g/dl (14.0-18.0)
[2018-03-11] MEDS: INSULIN ASPART [NOVOLOG] 3 ML PEN SC ×6 (01:00→21:00)
[2018-03-11 01:32] LABS: HEMATOCRIT 31.9 % (42.0-52.0)
[2018-03-11] MEDS: ALBUTEROL/IPRATROPIUM (NEB) 3 ML AMP HHN ×4 (01:51→21:19)
[2018-03-11] MEDS: BUMETANIDE 1 MG INJ IV ×2 (06:00→17:07)
[2018-03-11] MEDS: LEVOTHYROXINE 25 MCG TAB GTB (06:00)
[2018-03-11 08:09] LABS: ADD MAN DIFF? NO
[2018-03-11 08:22] LABS: ABNORMAL IP MESSAGE 1; EOSINOPHILS # 0.4 10^3/ul (0.0-0.5); EOSINOPHILS % 4.3 % (0.0-7.0); HEMATOCRIT 31.6 % (42.0-52.0); HEMOGLOBIN 9.9 g/dl (14.0-18.0); LYMPHOCYTES # 2.9 10^3/ul (0.8-2.9); LYMPHOCYTES % 30.5 % (15.0-51.0); MEAN CORPUSCULAR HEMOGLOBIN 28.6 pg (29.0-33.0); MEAN CORPUSCULAR HGB CONC 31.3 g/dl (32.0-37.0); MEAN CORPUSCULAR VOLUME 91.3 fl (82.0-101.0); MEAN PLATELET VOLUME 11.8 fl (7.4-10.4); MONOCYTE # 1.5 10^3/ul (0.3-0.9); NEUTROPHIL # 4.5 10^3/ul (1.6-7.5); NEUTROPHILS % 48.3 % (39.0-77.0); NUCLEATED RED BLOOD CELLS # 0.5 10^3/ul (0.0-0.0); NUCLEATED RED BLOOD CELLS% 5.1 /100WBC (0.0-0.0); PLATELET COUNT 54 10^3/UL (140-415); POSITIVE DIFF @See below; RED BLOOD COUNT 3.46 10^6/ul (4.70-6.10)
[2018-03-11 08:22] LABS: WHITE BLOOD COUNT 9.4 10^3/ul (4.8-10.8)
[2018-03-11 08:32] LABS: MONOCYTES % 16.4 % (0.0-11.0)
[2018-03-11 08:47] LABS: ANION GAP 10 (8-16); BLOOD UREA NITROGEN 65 mg/dl (7-20); CALCIUM 9.3 mg/dl (8.4-10.2); CARBON DIOXIDE 27 mmol/L (21-31); CHLORIDE 109 mmol/L (97-110); CREATININE 1.07 mg/dl (0.61-1.24); GLUCOSE 101 mg/dl (70-220); MAGNESIUM 3.6 mg/dl (1.7-2.5); PHOSPHORUS 4.7 mg/dl (2.5-4.9); POTASSIUM 3.9 mmol/L (3.5-5.1); SODIUM 142 mmol/L (135-144)
[2018-03-11] MEDS: METOPROLOL 25 MG TAB GTB ×2 (09:00→21:24)
[2018-03-11] MEDS: LACTULOSE 30ML CUP GTB ×2 (09:03→21:22)
[2018-03-11] MEDS: PANTOPRAZOLE 40 MG INJ IV ×2 (09:04→21:25)
[2018-03-11] MEDS: MEROPENEM 500MG/50 ML (PMX) 50 ML IVPB (09:04)
[2018-03-11] MEDS: ACYCLOVIR 200 MG CAP GTB ×2 (09:04→21:25)
[2018-03-11] MEDS: PYRIDOXINE 50 MG TAB GTB (09:04)
[2018-03-11] MEDS: ACETAZOLAMIDE 500 MG INJ IV (09:04)
[2018-03-11] MEDS: CHLORHEXIDINE GLUCONATE 15 ML UD CUP MT ×2 (09:04→21:24)
[2018-03-11] MEDS: BALSAM PERU/CASTOR OIL 60 GM TUBE TOP ×2 (09:05→21:23)
[2018-03-11] MEDS: SPIRONOLACTONE 25 MG TAB NGT (09:05)
[2018-03-11] MEDS: FOLIC ACID 1 MG TAB GTB (09:05)
[2018-03-11] MEDS: RIFAXIMIN 550 MG TAB PO ×2 (09:05→21:24)
[2018-03-11] MEDS: DIPHENHYDRAMINE 1%/ZINC 28.3 GM CR TOP ×2 (09:05→21:22)
[2018-03-11] MEDS: LORATADINE 10 MG TAB GTB (09:05)
[2018-03-11] MEDS: MIDODRINE 5 MG TAB PO ×3 (09:05→17:07)
[2018-03-11] MEDS: FLUCONAZOLE 100 MG TAB GTB (09:05)
[2018-03-11] MEDS: ARTIFICIAL TEARS 15 ML OPH BOTH EYES ×4 (09:06→21:23)
[2018-03-11] MEDS: MICONAZOLE 2% 30 GM CR TOP ×2 (09:07→21:28)
[2018-03-11] MEDS: INSULIN GLARGINE [LANtus] 3 ML PEN SC (09:14)
[2018-03-11 11:51] LABS: HEMATOCRIT 30.6 % (42.0-52.0); HEMOGLOBIN 9.6 g/dl (14.0-18.0)
[2018-03-11] MEDS: LEVOFLOXACIN 500 MG TAB PO (12:17)
[2018-03-11] MEDS: SILVER SULFADIAZINE 1% 25 GM CR TOP (12:18)
[2018-03-11 19:39] LABS: HEMOGLOBIN 9.7 g/dl (14.0-18.0)
[2018-03-12] MEDS: INSULIN ASPART [NOVOLOG] 3 ML PEN SC ×6 (01:00→20:45)
[2018-03-12] MEDS: DEXTROSE 50% 50 ML SYRINGE IV ×2 (01:13→08:46)
[2018-03-12] MEDS: ALBUTEROL/IPRATROPIUM (NEB) 3 ML AMP HHN ×4 (01:27→19:56)
[2018-03-12] MEDS: LEVOFLOXACIN 500 MG TAB PO (05:06)
[2018-03-12] MEDS: LEVOTHYROXINE 25 MCG TAB GTB (05:07)
[2018-03-12] MEDS: BUMETANIDE 1 MG INJ IV ×2 (05:08→17:22)
[2018-03-12] MEDS: CHLORHEXIDINE GLUCONATE 15 ML UD CUP MT ×2 (08:23→20:39)
[2018-03-12] MEDS: RIFAXIMIN 550 MG TAB PO ×2 (08:24→20:39)
[2018-03-12] MEDS: FOLIC ACID 1 MG TAB GTB (08:24)
[2018-03-12] MEDS: ACYCLOVIR 200 MG CAP GTB ×2 (08:24→20:39)
[2018-03-12] MEDS: LACTULOSE 30ML CUP GTB ×2 (08:24→20:39)
[2018-03-12] MEDS: METOPROLOL 25 MG TAB GTB ×2 (08:25→20:46)
[2018-03-12] MEDS: SPIRONOLACTONE 25 MG TAB NGT (08:26)
[2018-03-12] MEDS: LORATADINE 10 MG TAB GTB (08:26)
[2018-03-12] MEDS: PYRIDOXINE 50 MG TAB GTB (08:26)
[2018-03-12] MEDS: FLUCONAZOLE 100 MG TAB GTB (08:26)
[2018-03-12] MEDS: ARTIFICIAL TEARS 15 ML OPH BOTH EYES ×4 (08:36→20:44)
[2018-03-12] MEDS: BALSAM PERU/CASTOR OIL 60 GM TUBE TOP ×2 (08:37→20:44)
[2018-03-12] MEDS: DIPHENHYDRAMINE 1%/ZINC 28.3 GM CR TOP ×2 (08:37→20:45)
[2018-03-12] MEDS: MICONAZOLE 2% 30 GM CR TOP ×2 (08:37→20:45)
[2018-03-12] MEDS: PANTOPRAZOLE 40 MG INJ IV ×2 (08:38→20:39)
[2018-03-12] MEDS: ACETAZOLAMIDE 500 MG INJ IV (08:38)
[2018-03-12] MEDS: MIDODRINE 5 MG TAB PO ×3 (08:42→17:20)
[2018-03-12 09:11] LABS: ADD MAN DIFF? NO
[2018-03-12] MEDS: INSULIN GLARGINE [LANtus] 3 ML PEN SC (09:12)
[2018-03-12 09:23] LABS: WHITE BLOOD COUNT 8.8 10^3/ul (4.8-10.8)
[2018-03-12 09:23] LABS: ABNORMAL IP MESSAGE 1; BASOPHILS % 0.2 % (0.0-2.0); EOSINOPHILS # 0.3 10^3/ul (0.0-0.5); EOSINOPHILS % 3.8 % (0.0-7.0); HEMATOCRIT 31.9 % (42.0-52.0); LYMPHOCYTES # 2.8 10^3/ul (0.8-2.9); MEAN CORPUSCULAR HEMOGLOBIN 29.2 pg (29.0-33.0); MEAN CORPUSCULAR HGB CONC 31.3 g/dl (32.0-37.0); MEAN CORPUSCULAR VOLUME 93.3 fl (82.0-101.0); MEAN PLATELET VOLUME 12.1 fl (7.4-10.4); MONOCYTE # 1.5 10^3/ul (0.3-0.9); NEUTROPHILS % 45.9 % (39.0-77.0); NUCLEATED RED BLOOD CELLS # 0.4 10^3/ul (0.0-0.0); NUCLEATED RED BLOOD CELLS% 4.9 /100WBC (0.0-0.0); RED BLOOD COUNT 3.42 10^6/ul (4.70-6.10); RED CELL DISTRIBUTION WIDTH 20.5 % (11.5-14.5)
[2018-03-12 09:34] LABS: MONOCYTES % 17.6 % (0.0-11.0)
[2018-03-12 09:35] LABS: PLATELET COUNT 35 10^3/UL (140-415)
[2018-03-12 09:37] LABS: ANION GAP 13 (8-16); BLOOD UREA NITROGEN 60 mg/dl (7-20); CALCIUM 9.4 mg/dl (8.4-10.2); CARBON DIOXIDE 26 mmol/L (21-31); CHLORIDE 108 mmol/L (97-110); CREATININE 1.07 mg/dl (0.61-1.24); GLUCOSE 64 mg/dl (70-220); MAGNESIUM 3.6 mg/dl (1.7-2.5); PHOSPHORUS 4.4 mg/dl (2.5-4.9); POTASSIUM 3.9 mmol/L (3.5-5.1); SODIUM 143 mmol/L (135-144)
[2018-03-13] MEDS: INSULIN ASPART [NOVOLOG] 3 ML PEN SC ×6 (00:44→20:51)
[2018-03-13] MEDS: ALBUTEROL/IPRATROPIUM (NEB) 3 ML AMP HHN ×4 (01:45→20:11)
[2018-03-13] MEDS: LEVOTHYROXINE 25 MCG TAB GTB (05:08)
[2018-03-13] MEDS: BUMETANIDE 1 MG INJ IV ×2 (05:08→17:10)
[2018-03-13] MEDS: LEVOFLOXACIN 500 MG TAB PO (05:08)
[2018-03-13 07:32] LABS: ABNORMAL IP MESSAGE 1; HEMATOCRIT 30.4 % (42.0-52.0); HEMOGLOBIN 9.7 g/dl (14.0-18.0); MEAN CORPUSCULAR HEMOGLOBIN 29.8 pg (29.0-33.0); MEAN CORPUSCULAR HGB CONC 31.9 g/dl (32.0-37.0); MEAN CORPUSCULAR VOLUME 93.3 fl (82.0-101.0); MEAN PLATELET VOLUME 11.9 fl (7.4-10.4); NUCLEATED RED BLOOD CELLS% 4.5 /100WBC (0.0-0.0); POSITIVE DIFF @See below; RED BLOOD COUNT 3.26 10^6/ul (4.70-6.10); RED CELL DISTRIBUTION WIDTH 20.4 % (11.5-14.5)
[2018-03-13 07:48] LABS: ANION GAP 9 (8-16); BLOOD UREA NITROGEN 58 mg/dl (7-20); CALCIUM 9.2 mg/dl (8.4-10.2); CARBON DIOXIDE 26 mmol/L (21-31); CHLORIDE 110 mmol/L (97-110); CREATININE 1.05 mg/dl (0.61-1.24); GLUCOSE 101 mg/dl (70-220); MAGNESIUM 3.5 mg/dl (1.7-2.5); PHOSPHORUS 4.2 mg/dl (2.5-4.9); POTASSIUM 3.1 mmol/L (3.5-5.1); SODIUM 142 mmol/L (135-144)
[2018-03-13 08:04] LABS: ADD MAN DIFF? YES; PLATELET COUNT 26 10^3/UL (140-415)
[2018-03-13 08:57] LABS: ANISOCYTOSIS 1+ (0-0); BAND NEUTROPHILS #M 0.4 10^3/ul (0.0-0.6); BAND NEUTROPHILS % (M) 5 % (0-4); BURR CELLS 3+ (0-0); EOSINOPHILS % (M) 3 % (0-7); ERYTHROBLAST% (NRBC) (M) 1 % (0-0); GIANT THROMBO% (M) 4 % (0-0); LYMPHOCYTES #M 3.3 10^3/ul (0.8-2.9); LYMPHOCYTES % (M) 42 % (15-51); MONOCYTE #M 0.1 10^3/ul (0.3-0.9); MONOCYTES % (M) 2 % (0-11); PLATELET ESTIMATE SIG DECREASED; POIKILOCYTOSIS 2+ (0-0); POLYCHROMASIA 1+ (0-0); SEG NEUT #M 3.7 10^3/ul (1.6-7.5); SEGMENTED NEUTROPHILS (M) % 46 % (39-77); SMUDGE%M 1 % (0-0)
[2018-03-13] MEDS: METOPROLOL 25 MG TAB GTB ×2 (09:00→20:49)
[2018-03-13] MEDS: POTASSIUM CHLORIDE 20 MEQ POWDER FOR ORAL SOLN GTB (09:27)
[2018-03-13] MEDS: LACTULOSE 30ML CUP GTB ×2 (09:27→20:43)
[2018-03-13] MEDS: ACYCLOVIR 200 MG CAP GTB ×2 (09:28→20:43)
[2018-03-13] MEDS: LORATADINE 10 MG TAB GTB (09:28)
[2018-03-13] MEDS: PANTOPRAZOLE 40 MG INJ IV ×2 (09:28→20:47)
[2018-03-13] MEDS: CHLORHEXIDINE GLUCONATE 15 ML UD CUP MT ×2 (09:28→20:43)
[2018-03-13] MEDS: ACETAZOLAMIDE 500 MG INJ IV (09:28)
[2018-03-13] MEDS: FOLIC ACID 1 MG TAB GTB (09:28)
[2018-03-13] MEDS: RIFAXIMIN 550 MG TAB PO ×2 (09:28→20:43)
[2018-03-13] MEDS: SPIRONOLACTONE 25 MG TAB NGT (09:29)
[2018-03-13] MEDS: FLUCONAZOLE 100 MG TAB GTB (09:29)
[2018-03-13] MEDS: PYRIDOXINE 50 MG TAB GTB (09:29)
[2018-03-13] MEDS: ARTIFICIAL TEARS 15 ML OPH BOTH EYES ×4 (09:29→20:50)
[2018-03-13] MEDS: MIDODRINE 5 MG TAB PO ×3 (09:29→16:49)
[2018-03-13] MEDS: BALSAM PERU/CASTOR OIL 60 GM TUBE TOP ×2 (09:29→21:10)
[2018-03-13] MEDS: MICONAZOLE 2% 30 GM CR TOP ×2 (09:30→20:50)
[2018-03-13] MEDS: DIPHENHYDRAMINE 1%/ZINC 28.3 GM CR TOP ×2 (09:30→20:51)
[2018-03-13] MEDS: INSULIN GLARGINE [LANtus] 3 ML PEN SC (09:37)
[2018-03-13] MEDS: SILVER SULFADIAZINE 1% 25 GM CR TOP (14:09)
[2018-03-13 20:43] LABS: TYPE AND SCREEN 1 1
[2018-03-14] MEDS: INSULIN ASPART [NOVOLOG] 3 ML PEN SC ×6 (01:00→20:32)
[2018-03-14] MEDS: ALBUTEROL/IPRATROPIUM (NEB) 3 ML AMP HHN ×4 (02:27→20:52)
[2018-03-14] MEDS: LEVOTHYROXINE 25 MCG TAB GTB (05:16)
[2018-03-14] MEDS: LEVOFLOXACIN 500 MG TAB PO (05:17)
[2018-03-14] MEDS: BUMETANIDE 1 MG INJ IV ×2 (05:17→17:39)
[2018-03-14 07:24] LABS: ADD MAN DIFF? NO
[2018-03-14 07:29] LABS: ABNORMAL IP MESSAGE 1; BASOPHILS % 0.1 % (0.0-2.0); EOSINOPHILS # 0.2 10^3/ul (0.0-0.5); EOSINOPHILS % 2.8 % (0.0-7.0); HEMATOCRIT 28.6 % (42.0-52.0); HEMOGLOBIN 8.8 g/dl (14.0-18.0); LYMPHOCYTES # 1.8 10^3/ul (0.8-2.9); LYMPHOCYTES % 22.4 % (15.0-51.0); MEAN CORPUSCULAR HEMOGLOBIN 28.9 pg (29.0-33.0); MEAN CORPUSCULAR HGB CONC 30.8 g/dl (32.0-37.0); MEAN CORPUSCULAR VOLUME 93.8 fl (82.0-101.0); MEAN PLATELET VOLUME 10.4 fl (7.4-10.4); MONOCYTE # 1.6 10^3/ul (0.3-0.9); MONOCYTES % 19.9 % (0.0-11.0); NEUTROPHIL # 4.2 10^3/ul (1.6-7.5); NEUTROPHILS % 54.3 % (39.0-77.0); NUCLEATED RED BLOOD CELLS # 0.4 10^3/ul (0.0-0.0); NUCLEATED RED BLOOD CELLS% 5.1 /100WBC (0.0-0.0); POSITIVE DIFF @See below; RED BLOOD COUNT 3.05 10^6/ul (4.70-6.10)
[2018-03-14 07:29] LABS: WHITE BLOOD COUNT 7.8 10^3/ul (4.8-10.8)
[2018-03-14 07:33] LABS: PLATELET COUNT 91 10^3/UL (140-415)
[2018-03-14 07:47] LABS: ANION GAP 11 (8-16); BLOOD UREA NITROGEN 56 mg/dl (7-20); CALCIUM 9.3 mg/dl (8.4-10.2); CARBON DIOXIDE 25 mmol/L (21-31); CHLORIDE 109 mmol/L (97-110); CREATININE 1.06 mg/dl (0.61-1.24); GLUCOSE 121 mg/dl (70-220); MAGNESIUM 3.4 mg/dl (1.7-2.5); PHOSPHORUS 4.8 mg/dl (2.5-4.9); POTASSIUM 3.7 mmol/L (3.5-5.1); SODIUM 141 mmol/L (135-144)
[2018-03-14] MEDS: METOPROLOL 25 MG TAB GTB ×2 (09:00→20:22)
[2018-03-14] MEDS: MICONAZOLE 2% 30 GM CR TOP ×2 (09:33→20:24)
[2018-03-14] MEDS: SILVER SULFADIAZINE 1% 25 GM CR TOP (09:33)
[2018-03-14] MEDS: BALSAM PERU/CASTOR OIL 60 GM TUBE TOP ×2 (09:33→20:24)
[2018-03-14] MEDS: DIPHENHYDRAMINE 1%/ZINC 28.3 GM CR TOP ×2 (09:33→20:24)
[2018-03-14] MEDS: LACTULOSE 30ML CUP GTB ×2 (09:34→20:21)
[2018-03-14] MEDS: ACYCLOVIR 200 MG CAP GTB ×2 (09:34→20:21)
[2018-03-14] MEDS: PANTOPRAZOLE 40 MG INJ IV ×2 (09:34→20:21)
[2018-03-14] MEDS: ACETAZOLAMIDE 500 MG INJ IV (09:34)
[2018-03-14] MEDS: SPIRONOLACTONE 25 MG TAB NGT (09:34)
[2018-03-14] MEDS: ARTIFICIAL TEARS 15 ML OPH BOTH EYES ×4 (09:34→20:23)
[2018-03-14] MEDS: CHLORHEXIDINE GLUCONATE 15 ML UD CUP MT ×2 (09:34→20:21)
[2018-03-14] MEDS: RIFAXIMIN 550 MG TAB PO ×2 (09:34→20:22)
[2018-03-14] MEDS: LORATADINE 10 MG TAB GTB (09:35)
[2018-03-14] MEDS: FOLIC ACID 1 MG TAB GTB (09:35)
[2018-03-14] MEDS: FLUCONAZOLE 100 MG TAB GTB (09:35)
[2018-03-14] MEDS: PYRIDOXINE 50 MG TAB GTB (09:35)
[2018-03-14] MEDS: INSULIN GLARGINE [LANtus] 3 ML PEN SC (09:39)
[2018-03-14] MEDS: MIDODRINE 5 MG TAB PO ×3 (09:42→17:00)
[2018-03-14] MEDS: LIDOCAINE 1% (MPF) 5 ML VIAL SC (13:43)
[2018-03-15] MEDS: INSULIN ASPART [NOVOLOG] 3 ML PEN SC ×6 (01:00→20:47)
[2018-03-15] MEDS: ALBUTEROL/IPRATROPIUM (NEB) 3 ML AMP HHN ×4 (01:44→19:25)
[2018-03-15] MEDS: BUMETANIDE 1 MG INJ IV ×2 (05:15→17:24)
[2018-03-15] MEDS: LEVOFLOXACIN 500 MG TAB PO (05:15)
[2018-03-15] MEDS: LEVOTHYROXINE 25 MCG TAB GTB (05:15)
[2018-03-15 07:13] LABS: ABNORMAL IP MESSAGE 1; ADD MAN DIFF? NO; BASOPHILS % 0.1 % (0.0-2.0); EOSINOPHILS # 0.2 10^3/ul (0.0-0.5); EOSINOPHILS % 1.9 % (0.0-7.0); HEMATOCRIT 33.1 % (42.0-52.0); HEMOGLOBIN 9.9 g/dl (14.0-18.0); LYMPHOCYTES # 2.2 10^3/ul (0.8-2.9); MEAN CORPUSCULAR HEMOGLOBIN 28.5 pg (29.0-33.0); MEAN CORPUSCULAR HGB CONC 29.9 g/dl (32.0-37.0); MEAN CORPUSCULAR VOLUME 95.4 fl (82.0-101.0); MEAN PLATELET VOLUME 10.3 fl (7.4-10.4); MONOCYTE # 1.4 10^3/ul (0.3-0.9); NEUTROPHIL # 5.2 10^3/ul (1.6-7.5); NEUTROPHILS % 57.6 % (39.0-77.0); NUCLEATED RED BLOOD CELLS # 0.7 10^3/ul (0.0-0.0); NUCLEATED RED BLOOD CELLS% 7.5 /100WBC (0.0-0.0); POSITIVE DIFF @See below; RED BLOOD COUNT 3.47 10^6/ul (4.70-6.10); RED CELL DISTRIBUTION WIDTH 21.5 % (11.5-14.5)
[2018-03-15 07:21] LABS: MONOCYTES % 15.7 % (0.0-11.0); PLATELET COUNT 73 10^3/UL (140-415)
[2018-03-15 07:39] LABS: ANION GAP 11 (8-16); BLOOD UREA NITROGEN 54 mg/dl (7-20); CALCIUM 9.7 mg/dl (8.4-10.2); CARBON DIOXIDE 26 mmol/L (21-31); CHLORIDE 109 mmol/L (97-110); CREATININE 1.11 mg/dl (0.61-1.24); GLUCOSE 63 mg/dl (70-220); MAGNESIUM 3.6 mg/dl (1.7-2.5); PHOSPHORUS 5.3 mg/dl (2.5-4.9); POTASSIUM 3.9 mmol/L (3.5-5.1); SODIUM 142 mmol/L (135-144)
[2018-03-15] MEDS: PANTOPRAZOLE 40 MG INJ IV ×2 (09:21→20:43)
[2018-03-15] MEDS: ACETAZOLAMIDE 500 MG INJ IV (09:21)
[2018-03-15] MEDS: PYRIDOXINE 50 MG TAB GTB (09:22)
[2018-03-15] MEDS: LORATADINE 10 MG TAB GTB (09:22)
[2018-03-15] MEDS: CHLORHEXIDINE GLUCONATE 15 ML UD CUP MT ×2 (09:22→20:43)
[2018-03-15] MEDS: MIDODRINE 5 MG TAB PO ×4 (09:22→17:27)
[2018-03-15] MEDS: FLUCONAZOLE 100 MG TAB GTB (09:22)
[2018-03-15] MEDS: SPIRONOLACTONE 25 MG TAB NGT (09:22)
[2018-03-15] MEDS: ACYCLOVIR 200 MG CAP GTB ×2 (09:22→20:43)
[2018-03-15] MEDS: RIFAXIMIN 550 MG TAB PO ×2 (09:22→20:43)
[2018-03-15] MEDS: METOPROLOL 25 MG TAB GTB ×2 (09:23→20:47)
[2018-03-15] MEDS: FOLIC ACID 1 MG TAB GTB (09:23)
[2018-03-15] MEDS: LACTULOSE 30ML CUP GTB ×2 (09:30→20:43)
[2018-03-15] MEDS: BALSAM PERU/CASTOR OIL 60 GM TUBE TOP ×2 (09:30→20:44)
[2018-03-15] MEDS: ARTIFICIAL TEARS 15 ML OPH BOTH EYES ×4 (09:30→20:43)
[2018-03-15] MEDS: MICONAZOLE 2% 30 GM CR TOP ×2 (09:31→20:46)
[2018-03-15] MEDS: DIPHENHYDRAMINE 1%/ZINC 28.3 GM CR TOP ×2 (09:31→20:45)
[2018-03-15] MEDS: INSULIN GLARGINE [LANtus] 3 ML PEN SC (09:32)
[2018-03-15] MEDS: SILVER SULFADIAZINE 1% 25 GM CR TOP (12:36)
[2018-03-15] MEDS: DEXTROSE 50% 50 ML SYRINGE IV (12:40)
[2018-03-16] MEDS: INSULIN ASPART [NOVOLOG] 3 ML PEN SC ×6 (01:00→21:00)
[2018-03-16] MEDS: ALBUTEROL/IPRATROPIUM (NEB) 3 ML AMP HHN ×4 (01:11→20:05)
[2018-03-16] MEDS: LEVOFLOXACIN 500 MG TAB PO (05:12)
[2018-03-16] MEDS: LEVOTHYROXINE 25 MCG TAB GTB (05:13)
[2018-03-16] MEDS: BUMETANIDE 1 MG INJ IV (05:13)
[2018-03-16 06:34] LABS: ADD MAN DIFF? NO
[2018-03-16 06:47] LABS: WHITE BLOOD COUNT 9.1 10^3/ul (4.8-10.8)
[2018-03-16 06:47] LABS: ABNORMAL IP MESSAGE 1; BASOPHILS % 0.1 % (0.0-2.0); EOSINOPHILS # 0.2 10^3/ul (0.0-0.5); HEMATOCRIT 28.7 % (42.0-52.0); HEMOGLOBIN 8.9 g/dl (14.0-18.0); LYMPHOCYTES # 2.3 10^3/ul (0.8-2.9); LYMPHOCYTES % 24.8 % (15.0-51.0); MEAN CORPUSCULAR VOLUME 93.5 fl (82.0-101.0); MEAN PLATELET VOLUME 11.9 fl (7.4-10.4); MONOCYTE # 1.8 10^3/ul (0.3-0.9); NEUTROPHIL # 4.8 10^3/ul (1.6-7.5); NEUTROPHILS % 52.6 % (39.0-77.0); NUCLEATED RED BLOOD CELLS # 0.9 10^3/ul (0.0-0.0); NUCLEATED RED BLOOD CELLS% 9.3 /100WBC (0.0-0.0); PLATELET COUNT 59 10^3/UL (140-415); POSITIVE DIFF @See below; RED BLOOD COUNT 3.07 10^6/ul (4.70-6.10); RED CELL DISTRIBUTION WIDTH 21.4 % (11.5-14.5)
[2018-03-16 07:00] LABS: MONOCYTES % 19.3 % (0.0-11.0)
[2018-03-16 07:10] LABS: ANION GAP 15 (8-16); BLOOD UREA NITROGEN 57 mg/dl (7-20); CALCIUM 9.2 mg/dl (8.4-10.2); CARBON DIOXIDE 23 mmol/L (21-31); CHLORIDE 107 mmol/L (97-110); CREATININE 1.14 mg/dl (0.61-1.24); GLUCOSE 64 mg/dl (70-220); MAGNESIUM 3.5 mg/dl (1.7-2.5); PHOSPHORUS 4.5 mg/dl (2.5-4.9); POTASSIUM 3.7 mmol/L (3.5-5.1); SODIUM 141 mmol/L (135-144)
[2018-03-16] MEDS: DEXTROSE 50% 50 ML SYRINGE IV ×2 (08:40→17:22)
[2018-03-16] MEDS: METOPROLOL 25 MG TAB GTB ×2 (09:00→21:00)
[2018-03-16] MEDS: ALBUMIN HUMAN 25% 100 ML IV ×2 (09:01→16:23)
[2018-03-16] MEDS: LACTULOSE 30ML CUP GTB ×2 (09:01→21:47)
[2018-03-16] MEDS: MIDODRINE 5 MG TAB PO ×3 (09:02→17:27)
[2018-03-16] MEDS: PYRIDOXINE 50 MG TAB GTB (09:02)
[2018-03-16] MEDS: PANTOPRAZOLE 40 MG INJ IV ×2 (09:02→21:47)
[2018-03-16] MEDS: ACYCLOVIR 200 MG CAP GTB ×2 (09:02→21:48)
[2018-03-16] MEDS: LORATADINE 10 MG TAB GTB (09:02)
[2018-03-16] MEDS: SPIRONOLACTONE 25 MG TAB NGT (09:03)
[2018-03-16] MEDS: FLUCONAZOLE 100 MG TAB GTB (09:03)
[2018-03-16] MEDS: FOLIC ACID 1 MG TAB GTB (09:03)
[2018-03-16] MEDS: RIFAXIMIN 550 MG TAB PO ×2 (09:03→21:48)
[2018-03-16] MEDS: ARTIFICIAL TEARS 15 ML OPH BOTH EYES ×4 (09:03→21:47)
[2018-03-16] MEDS: DIPHENHYDRAMINE 1%/ZINC 28.3 GM CR TOP ×2 (09:03→21:50)
[2018-03-16] MEDS: BALSAM PERU/CASTOR OIL 60 GM TUBE TOP ×2 (09:04→21:52)
[2018-03-16] MEDS: CHLORHEXIDINE GLUCONATE 15 ML UD CUP MT ×2 (09:04→21:47)
[2018-03-16] MEDS: MICONAZOLE 2% 30 GM CR TOP ×2 (09:04→21:51)
[2018-03-16] MEDS: INSULIN GLARGINE [LANtus] 3 ML PEN SC (09:07)
[2018-03-16] MEDS: DEXTROSE 5% 1,000 ML IV (10:41)
[2018-03-16] MEDS: METOCLOPRAMIDE 10 MG INJ IV ×2 (12:46→17:22)
[2018-03-16 19:12] LABS: AMMONIA 36 umol/l (9-30)
[2018-03-17] MEDS: INSULIN ASPART [NOVOLOG] 3 ML PEN SC ×6 (01:00→21:38)
[2018-03-17] MEDS: ALBUMIN HUMAN 25% 100 ML IV ×2 (01:35→09:25)
[2018-03-17] MEDS: METOCLOPRAMIDE 10 MG INJ IV ×4 (01:35→17:51)
[2018-03-17] MEDS: ALBUTEROL/IPRATROPIUM (NEB) 3 ML AMP HHN ×4 (02:00→19:27)
[2018-03-17] MEDS: PANTOPRAZOLE 40 MG INJ IV ×2 (05:21→21:30)
[2018-03-17] MEDS: DEXTROSE 5% 1,000 ML IV (05:24)
[2018-03-17] MEDS: LEVOFLOXACIN 500 MG TAB PO (05:24)
[2018-03-17] MEDS: LEVOTHYROXINE 25 MCG TAB GTB (05:24)
[2018-03-17 08:00] LABS: ADD MAN DIFF? NO
[2018-03-17 08:10] LABS: ABNORMAL IP MESSAGE 1; BASOPHILS % 0.1 % (0.0-2.0); EOSINOPHILS # 0.1 10^3/ul (0.0-0.5); EOSINOPHILS % 0.9 % (0.0-7.0); HEMATOCRIT 24.5 % (42.0-52.0); HEMOGLOBIN 7.8 g/dl (14.0-18.0); LYMPHOCYTES # 2.5 10^3/ul (0.8-2.9); LYMPHOCYTES % 25.1 % (15.0-51.0); MEAN CORPUSCULAR HEMOGLOBIN 29.5 pg (29.0-33.0); MEAN CORPUSCULAR HGB CONC 31.8 g/dl (32.0-37.0); MEAN CORPUSCULAR VOLUME 92.8 fl (82.0-101.0); MEAN PLATELET VOLUME 11.7 fl (7.4-10.4); MONOCYTE # 1.9 10^3/ul (0.3-0.9); NEUTROPHIL # 5.2 10^3/ul (1.6-7.5); NEUTROPHILS % 53.1 % (39.0-77.0); NUCLEATED RED BLOOD CELLS # 1.4 10^3/ul (0.0-0.0); NUCLEATED RED BLOOD CELLS% 14.3 /100WBC (0.0-0.0); PLATELET COUNT 45 10^3/UL (140-415); POSITIVE DIFF @See below; RED BLOOD COUNT 2.64 10^6/ul (4.70-6.10); RED CELL DISTRIBUTION WIDTH 20.5 % (11.5-14.5)
[2018-03-17 08:10] LABS: WHITE BLOOD COUNT 9.8 10^3/ul (4.8-10.8)
[2018-03-17 08:22] LABS: MONOCYTES % 19.8 % (0.0-11.0)
[2018-03-17 08:40] LABS: ANION GAP 15 (8-16); BLOOD UREA NITROGEN 61 mg/dl (7-20); CALCIUM 9.1 mg/dl (8.4-10.2); CARBON DIOXIDE 22 mmol/L (21-31); CHLORIDE 105 mmol/L (97-110); CREATININE 1.33 mg/dl (0.61-1.24); GLUCOSE 97 mg/dl (70-220); MAGNESIUM 3.4 mg/dl (1.7-2.5); PHOSPHORUS 4.1 mg/dl (2.5-4.9); POTASSIUM 3.9 mmol/L (3.5-5.1); SODIUM 138 mmol/L (135-144)
[2018-03-17] MEDS: METOPROLOL 25 MG TAB GTB (09:00)
[2018-03-17] MEDS: CHLORHEXIDINE GLUCONATE 15 ML UD CUP MT ×2 (09:23→21:30)
[2018-03-17] MEDS: LACTULOSE 30ML CUP GTB ×2 (09:23→21:29)
[2018-03-17] MEDS: SPIRONOLACTONE 25 MG TAB NGT (09:25)
[2018-03-17] MEDS: PYRIDOXINE 50 MG TAB GTB (09:25)
[2018-03-17] MEDS: RIFAXIMIN 550 MG TAB PO ×2 (09:25→21:30)
[2018-03-17] MEDS: FLUCONAZOLE 100 MG TAB GTB (09:25)
[2018-03-17] MEDS: ACYCLOVIR 200 MG CAP GTB ×2 (09:25→21:30)
[2018-03-17] MEDS: FOLIC ACID 1 MG TAB GTB (09:25)
[2018-03-17] MEDS: LORATADINE 10 MG TAB GTB (09:25)
[2018-03-17] MEDS: BALSAM PERU/CASTOR OIL 60 GM TUBE TOP ×2 (09:27→21:31)
[2018-03-17] MEDS: ARTIFICIAL TEARS 15 ML OPH BOTH EYES ×4 (09:27→21:29)
[2018-03-17] MEDS: MICONAZOLE 2% 30 GM CR TOP ×2 (09:27→21:33)
[2018-03-17] MEDS: DIPHENHYDRAMINE 1%/ZINC 28.3 GM CR TOP ×2 (09:27→21:31)
[2018-03-17] MEDS: MIDODRINE 5 MG TAB PO ×3 (09:36→17:48)
[2018-03-17] MEDS: INSULIN GLARGINE [LANtus] 3 ML PEN SC (09:42)
[2018-03-17] MEDS: SILVER SULFADIAZINE 1% 25 GM CR TOP (12:43)
[2018-03-18] MEDS: METOCLOPRAMIDE 10 MG INJ IV ×4 (00:08→17:57)
[2018-03-18] MEDS: INSULIN ASPART [NOVOLOG] 3 ML PEN SC ×5 (01:00→18:18)
[2018-03-18] MEDS: ALBUTEROL/IPRATROPIUM (NEB) 3 ML AMP HHN ×4 (01:34→19:51)
[2018-03-18] MEDS: DEXTROSE 5% 1,000 ML IV ×2 (02:26→21:41)
[2018-03-18] MEDS: LEVOTHYROXINE 25 MCG TAB GTB (05:30)
[2018-03-18] MEDS: LEVOFLOXACIN 500 MG TAB PO (05:30)
[2018-03-18 07:14] LABS: ABNORMAL IP MESSAGE 1; HEMOGLOBIN 8.6 g/dl (14.0-18.0); MEAN CORPUSCULAR HEMOGLOBIN 28.6 pg (29.0-33.0); MEAN CORPUSCULAR HGB CONC 30.7 g/dl (32.0-37.0); MEAN PLATELET VOLUME 12.2 fl (7.4-10.4); PLATELET COUNT 38 10^3/UL (140-415); POSITIVE DIFF @See below; RED BLOOD COUNT 3.01 10^6/ul (4.70-6.10); RED CELL DISTRIBUTION WIDTH 20.8 % (11.5-14.5)
[2018-03-18 07:26] LABS: ADD MAN DIFF? YES
[2018-03-18 07:41] LABS: ANION GAP 14 (8-16); BLOOD UREA NITROGEN 63 mg/dl (7-20); CALCIUM 9.2 mg/dl (8.4-10.2); CARBON DIOXIDE 23 mmol/L (21-31); CHLORIDE 102 mmol/L (97-110); CREATININE 1.46 mg/dl (0.61-1.24); GLUCOSE 139 mg/dl (70-220); MAGNESIUM 3.4 mg/dl (1.7-2.5); PHOSPHORUS 4.6 mg/dl (2.5-4.9); POTASSIUM 3.9 mmol/L (3.5-5.1); SODIUM 135 mmol/L (135-144)
[2018-03-18] MEDS: INSULIN GLARGINE [LANtus] 3 ML PEN SC (08:00)
[2018-03-18] MEDS: LACTULOSE 30ML CUP GTB ×2 (09:00→21:00)
[2018-03-18 09:13] LABS: BAND NEUTROPHILS #M 0.4 10^3/ul (0.0-0.6); BAND NEUTROPHILS % (M) 4 % (0-4); BURR CELLS 1+ (0-0); DIMORPHIC RBC 1+ (0-0); EOSINOPHILS % (M) 1 % (0-7); ERYTHROBLAST% (NRBC) (M) 34 % (0-0); GIANT THROMBO% (M) 12 % (0-0); LYMPHOCYTES #M 3.6 10^3/ul (0.8-2.9); LYMPHOCYTES % (M) 30 % (15-51); MONOCYTE #M 1.9 10^3/ul (0.3-0.9); MONOCYTES % (M) 16 % (0-11); MYELOCYTES #M 0.1 10^3/ul (0.0-0.0); MYELOCYTES % (M) 1 % (0-0); PLATELET ESTIMATE DECREASED; POIKILOCYTOSIS 1+ (0-0); SEG NEUT #M 5.8 10^3/ul (1.6-7.5); SEGMENTED NEUTROPHILS (M) % 48 % (39-77); SMUDGE%M 50 % (0-0)
[2018-03-18] MEDS: ACYCLOVIR 200 MG CAP GTB ×2 (09:34→21:37)
[2018-03-18] MEDS: FLUCONAZOLE 100 MG TAB GTB (09:34)
[2018-03-18] MEDS: PANTOPRAZOLE 40 MG INJ IV ×2 (09:34→21:36)
[2018-03-18] MEDS: LORATADINE 10 MG TAB GTB (09:34)
[2018-03-18] MEDS: CHLORHEXIDINE GLUCONATE 15 ML UD CUP MT ×2 (09:34→21:36)
[2018-03-18] MEDS: PYRIDOXINE 50 MG TAB GTB (09:34)
[2018-03-18] MEDS: ARTIFICIAL TEARS 15 ML OPH BOTH EYES ×4 (09:35→21:39)
[2018-03-18] MEDS: SPIRONOLACTONE 25 MG TAB NGT (09:35)
[2018-03-18] MEDS: FOLIC ACID 1 MG TAB GTB (09:35)
[2018-03-18] MEDS: RIFAXIMIN 550 MG TAB PO ×2 (09:35→21:37)
[2018-03-18] MEDS: BALSAM PERU/CASTOR OIL 60 GM TUBE TOP ×2 (09:37→21:37)
[2018-03-18] MEDS: DIPHENHYDRAMINE 1%/ZINC 28.3 GM CR TOP ×2 (09:37→21:39)
[2018-03-18] MEDS: MICONAZOLE 2% 30 GM CR TOP ×2 (09:38→21:39)
[2018-03-18] MEDS: MIDODRINE 5 MG TAB PO ×3 (09:42→18:00)
[2018-03-18] MEDS: ALBUMIN HUMAN 25% 100 ML IV ×2 (10:33→17:59)
[2018-03-18 17:33] LABS: ADD UMIC YES; UR ASCORBIC ACID 20 mg/dL (NEGATIVE); UR BILIRUBIN (Dip) NEGATIVE (NEGATIVE); UR BLOOD (Dip) 3+ mg/dL (NEGATIVE); UR BUDDING YEAST MANY /HPF (NONE SEEN); UR CLARITY CLOUDY (CLEAR); UR COLOR YELLOW (YELLOW); UR GLUCOSE (Dip) NEGATIVE (NEGATIVE); UR KETONES (Dip) NEGATIVE (NEGATIVE); UR LEUKOCYTE ESTERASE (Dip) 3+ Leu/ul (NEGATIVE); UR NITRITE (Dip) NEGATIVE (NEGATIVE); UR RBC 40 /HPF (0-5); UR SPECIFIC GRAVITY (Dip) 1.013 (1.003-1.030); UR TOTAL PROTEIN (Dip) 1+ mg/dl (NEGATIVE); UR UROBILINOGEN (Dip) NEGATIVE (NEGATIVE); UR WBC > 182 /HPF (0-5)
[2018-03-18 17:35] LABS: CREATININE,URINE RANDOM 25.43 mg/dl (20-370)
[2018-03-18 17:46] LABS: SODIUM,URINE RANDOM < 13 mmol/L (30-90)
[2018-03-19] MEDS: METOCLOPRAMIDE 10 MG INJ IV ×5 (00:04→23:42)
[2018-03-19] MEDS: INSULIN ASPART [NOVOLOG] 3 ML PEN SC ×4 (00:08→17:22)
[2018-03-19] MEDS: ALBUTEROL/IPRATROPIUM (NEB) 3 ML AMP HHN ×3 (01:16→15:46)
[2018-03-19] MEDS: ALBUMIN HUMAN 25% 100 ML IV (01:44)
[2018-03-19] MEDS: LEVOFLOXACIN 500 MG TAB PO (06:12)
[2018-03-19] MEDS: LEVOTHYROXINE 25 MCG TAB GTB (06:13)
[2018-03-19] MEDS: INSULIN GLARGINE [LANtus] 3 ML PEN SC (07:50)
[2018-03-19] MEDS: LACTULOSE 30ML CUP GTB ×2 (08:32→22:40)
[2018-03-19] MEDS: FOLIC ACID 1 MG TAB GTB (08:39)
[2018-03-19] MEDS: PYRIDOXINE 50 MG TAB GTB (08:39)
[2018-03-19] MEDS: ARTIFICIAL TEARS 15 ML OPH BOTH EYES ×4 (08:39→22:43)
[2018-03-19] MEDS: LORATADINE 10 MG TAB GTB (08:39)
[2018-03-19] MEDS: PANTOPRAZOLE 40 MG INJ IV ×2 (08:39→22:40)
[2018-03-19] MEDS: FLUCONAZOLE 100 MG TAB GTB (08:40)
[2018-03-19] MEDS: ACYCLOVIR 200 MG CAP GTB ×2 (08:40→22:40)
[2018-03-19] MEDS: RIFAXIMIN 550 MG TAB PO ×2 (08:40→22:40)
[2018-03-19] MEDS: CHLORHEXIDINE GLUCONATE 15 ML UD CUP MT ×2 (08:40→22:40)
[2018-03-19] MEDS: SPIRONOLACTONE 25 MG TAB NGT (08:41)
[2018-03-19] MEDS: DIPHENHYDRAMINE 1%/ZINC 28.3 GM CR TOP ×2 (08:43→22:42)
[2018-03-19] MEDS: BALSAM PERU/CASTOR OIL 60 GM TUBE TOP ×2 (08:44→22:41)
[2018-03-19] MEDS: MICONAZOLE 2% 30 GM CR TOP ×2 (08:44→21:00)
[2018-03-19] MEDS: MIDODRINE 5 MG TAB PO ×3 (08:48→17:54)
[2018-03-19 08:49] LABS: WHITE BLOOD COUNT 10.7 10^3/ul (4.8-10.8)
[2018-03-19 08:49] LABS: ABNORMAL IP MESSAGE 1; HEMATOCRIT 23.7 % (42.0-52.0); HEMOGLOBIN 7.5 g/dl (14.0-18.0); MEAN CORPUSCULAR HEMOGLOBIN 29.1 pg (29.0-33.0); MEAN CORPUSCULAR HGB CONC 31.6 g/dl (32.0-37.0); MEAN CORPUSCULAR VOLUME 91.9 fl (82.0-101.0); MEAN PLATELET VOLUME 13.2 fl (7.4-10.4); NUCLEATED RED BLOOD CELLS% 19.9 /100WBC (0.0-0.0); POSITIVE DIFF @See below; RED BLOOD COUNT 2.58 10^6/ul (4.70-6.10); RED CELL DISTRIBUTION WIDTH 20.6 % (11.5-14.5)
[2018-03-19 08:56] LABS: ADD MAN DIFF? YES; PLATELET COUNT 25 10^3/UL (140-415)
[2018-03-19 09:18] LABS: ANISOCYTOSIS 1+ (0-0); BAND NEUTROPHILS #M 0.5 10^3/ul (0.0-0.6); BAND NEUTROPHILS % (M) 5 % (0-4); ERYTHROBLAST% (NRBC) (M) 25 % (0-0); GIANT THROMBO% (M) 9 % (0-0); LYMPHOCYTES #M 1.3 10^3/ul (0.8-2.9); LYMPHOCYTES % (M) 13 % (15-51); MICROCYTOSIS 1+ (0-0); MONOCYTE #M 0.9 10^3/ul (0.3-0.9); MONOCYTES % (M) 9 % (0-11); MYELOCYTES #M 0.2 10^3/ul (0.0-0.0); MYELOCYTES % (M) 2 % (0-0); PLATELET ESTIMATE SIG DECREASED; POIKILOCYTOSIS 2+ (0-0); POLYCHROMASIA 1+ (0-0); PROMYELOCYTES #M 0.1 10^3/ul (0-0); PROMYELOCYTES % (M) 1 % (0-0); SEG NEUT #M 7.5 10^3/ul (1.6-7.5); SEGMENTED NEUTROPHILS (M) % 70 % (39-77); SMUDGE%M 7 % (0-0); TARGET CELLS 1+ (0-0)
[2018-03-19 09:32] LABS: ANION GAP 19 (8-16); BLOOD UREA NITROGEN 61 mg/dl (7-20); CALCIUM 9.4 mg/dl (8.4-10.2); CARBON DIOXIDE 20 mmol/L (21-31); CHLORIDE 98 mmol/L (97-110); CREATININE 1.38 mg/dl (0.61-1.24); GLUCOSE 123 mg/dl (70-220); MAGNESIUM 3.2 mg/dl (1.7-2.5); PHOSPHORUS 4.7 mg/dl (2.5-4.9); POTASSIUM 3.9 mmol/L (3.5-5.1); SODIUM 133 mmol/L (135-144)
[2018-03-19] MEDS: SILVER SULFADIAZINE 1% 25 GM CR TOP (12:19)
[2018-03-19] MEDS: ERYTHROMYCIN BASE (EC) 250 MG TAB PO ×2 (14:00→22:40)
[2018-03-19 15:22] LABS: CREATININE, RANDOM URINE 30 mg/dL (20-370); MICROALBUMIN 13.3 mg/dL; MICROALBUMIN/CREATININE RATIO 443 (<30)
[2018-03-19] MEDS: ALBUTEROL HFA 8 GM INHALER INH (19:43)
[2018-03-19 20:33] LABS: IMMEDIATE SPIN CROSSMATCH 1 1
[2018-03-20] MEDS: ALBUTEROL HFA 8 GM INHALER INH ×4 (01:08→19:40)
[2018-03-20] MEDS: INSULIN ASPART [NOVOLOG] 3 ML PEN SC ×4 (02:38→18:00)
[2018-03-20] MEDS: LEVOTHYROXINE 25 MCG TAB GTB (06:21)
[2018-03-20] MEDS: METOCLOPRAMIDE 10 MG INJ IV ×3 (06:21→17:20)
[2018-03-20] MEDS: ERYTHROMYCIN BASE (EC) 250 MG TAB PO ×3 (06:21→21:08)
[2018-03-20] MEDS: LACTULOSE 30ML CUP GTB ×2 (08:36→21:08)
[2018-03-20] MEDS: PANTOPRAZOLE 40 MG INJ IV ×2 (08:36→21:08)
[2018-03-20] MEDS: CHLORHEXIDINE GLUCONATE 15 ML UD CUP MT ×2 (08:36→21:08)
[2018-03-20] MEDS: SPIRONOLACTONE 25 MG TAB NGT (08:37)
[2018-03-20] MEDS: MIDODRINE 5 MG TAB PO ×3 (08:37→17:20)
[2018-03-20] MEDS: RIFAXIMIN 550 MG TAB PO ×2 (08:37→21:13)
[2018-03-20] MEDS: LORATADINE 10 MG TAB GTB (08:37)
[2018-03-20] MEDS: ARTIFICIAL TEARS 15 ML OPH BOTH EYES ×4 (08:37→21:09)
[2018-03-20] MEDS: PYRIDOXINE 50 MG TAB GTB (08:37)
[2018-03-20] MEDS: FLUCONAZOLE 100 MG TAB GTB (08:37)
[2018-03-20] MEDS: FOLIC ACID 1 MG TAB GTB (08:37)
[2018-03-20] MEDS: ACYCLOVIR 200 MG CAP GTB ×2 (08:37→21:08)
[2018-03-20] MEDS: BALSAM PERU/CASTOR OIL 60 GM TUBE TOP ×2 (08:38→21:09)
[2018-03-20] MEDS: MICONAZOLE 2% 30 GM CR TOP ×2 (08:38→21:12)
[2018-03-20] MEDS: DIPHENHYDRAMINE 1%/ZINC 28.3 GM CR TOP ×2 (08:39→21:10)
[2018-03-20] MEDS: INSULIN GLARGINE [LANtus] 3 ML PEN SC (08:51)
[2018-03-20 10:40] LABS: WHITE BLOOD COUNT 11.3 10^3/ul (4.8-10.8)
[2018-03-20 10:40] LABS: ABNORMAL IP MESSAGE 1; HEMATOCRIT 28.4 % (42.0-52.0); HEMOGLOBIN 9.1 g/dl (14.0-18.0); MEAN CORPUSCULAR HEMOGLOBIN 29.1 pg (29.0-33.0); MEAN CORPUSCULAR VOLUME 90.7 fl (82.0-101.0); NUCLEATED RED BLOOD CELLS% 29.8 /100WBC (0.0-0.0); POSITIVE DIFF @See below; RED BLOOD COUNT 3.13 10^6/ul (4.70-6.10); RED CELL DISTRIBUTION WIDTH 19.8 % (11.5-14.5)
[2018-03-20 10:54] LABS: PLATELET COUNT 29 10^3/UL (140-415)
[2018-03-20 10:55] LABS: ADD MAN DIFF? YES
[2018-03-20 10:59] LABS: ANION GAP 16 (8-16)
[2018-03-20 11:04] LABS: BLOOD UREA NITROGEN 67 mg/dl (7-20); CALCIUM 9.4 mg/dl (8.4-10.2); CARBON DIOXIDE 21 mmol/L (21-31); CHLORIDE 96 mmol/L (97-110); CREATININE 1.48 mg/dl (0.61-1.24); GLUCOSE 147 mg/dl (70-220); MAGNESIUM 3.2 mg/dl (1.7-2.5); PHOSPHORUS 4.7 mg/dl (2.5-4.9); SODIUM 129 mmol/L (135-144)
[2018-03-20 11:29] LABS: ANISOCYTOSIS 1+ (0-0); BAND NEUTROPHILS #M 0.5 10^3/ul (0.0-0.6); BAND NEUTROPHILS % (M) 5 % (0-4); EOSINOPHILS % (M) 3 % (0-7); ERYTHROBLAST% (NRBC) (M) 50 % (0-0); GIANT THROMBO% (M) 19 % (0-0); LYMPHOCYTES #M 1.9 10^3/ul (0.8-2.9); LYMPHOCYTES % (M) 17 % (15-51); MONOCYTE #M 1.4 10^3/ul (0.3-0.9); MONOCYTES % (M) 13 % (0-11); MYELOCYTES #M 0.1 10^3/ul (0.0-0.0); MYELOCYTES % (M) 1 % (0-0); PLATELET ESTIMATE SIG DECREASED; POIKILOCYTOSIS 3+ (0-0); POLYCHROMASIA 3+ (0-0); REACTIVE LYMPHOCYTES #M 0.3 10^3/ul (0.0-0.0); REACTIVE LYMPHOCYTES% (M) 3 % (0-0); SEG NEUT #M 6.6 10^3/ul (1.6-7.5); SEGMENTED NEUTROPHILS (M) % 58 % (39-77); SMUDGE%M 14 % (0-0)
[2018-03-20 16:57] LABS: TYPE AND SCREEN 1
[2018-03-21] MEDS: ALBUTEROL HFA 8 GM INHALER INH ×4 (01:19→19:42)
[2018-03-21] MEDS: METOCLOPRAMIDE 10 MG INJ IV ×5 (01:22→23:34)
[2018-03-21] MEDS: LEVOTHYROXINE 25 MCG TAB GTB (04:44)
[2018-03-21] MEDS: ERYTHROMYCIN BASE (EC) 250 MG TAB PO ×3 (04:44→21:04)
[2018-03-21] MEDS: INSULIN ASPART [NOVOLOG] 3 ML PEN SC ×5 (04:44→23:34)
[2018-03-21 05:57] LABS: ADD MAN DIFF? NO
[2018-03-21 06:06] LABS: WHITE BLOOD COUNT 12.6 10^3/ul (4.8-10.8)
[2018-03-21 06:07] LABS: ABNORMAL IP MESSAGE 1; HEMOGLOBIN 9.2 g/dl (14.0-18.0); MEAN CORPUSCULAR HEMOGLOBIN 29.6 pg (29.0-33.0); MEAN CORPUSCULAR HGB CONC 32.9 g/dl (32.0-37.0); NUCLEATED RED BLOOD CELLS% 29.8 /100WBC (0.0-0.0); PLATELET COUNT 63 10^3/UL (140-415); POSITIVE DIFF @See below; RED BLOOD COUNT 3.11 10^6/ul (4.70-6.10); RED CELL DISTRIBUTION WIDTH 19.9 % (11.5-14.5)
[2018-03-21 06:15] LABS: ANION GAP 15 (8-16); BLOOD UREA NITROGEN 67 mg/dl (7-20); CALCIUM 9.5 mg/dl (8.4-10.2); CARBON DIOXIDE 22 mmol/L (21-31); CHLORIDE 98 mmol/L (97-110); CREATININE 1.47 mg/dl (0.61-1.24); GLUCOSE 105 mg/dl (70-220); MAGNESIUM 3.2 mg/dl (1.7-2.5); PHOSPHORUS 4.6 mg/dl (2.5-4.9); SODIUM 131 mmol/L (135-144)
[2018-03-21] MEDS: CHLORHEXIDINE GLUCONATE 15 ML UD CUP MT ×2 (08:26→20:53)
[2018-03-21] MEDS: PANTOPRAZOLE 40 MG INJ IV ×2 (08:26→20:53)
[2018-03-21] MEDS: ACYCLOVIR 200 MG CAP GTB ×2 (08:26→20:53)
[2018-03-21] MEDS: LACTULOSE 30ML CUP GTB ×2 (08:26→20:53)
[2018-03-21] MEDS: MIDODRINE 5 MG TAB PO ×3 (08:27→18:04)
[2018-03-21] MEDS: PYRIDOXINE 50 MG TAB GTB (08:27)
[2018-03-21] MEDS: LORATADINE 10 MG TAB GTB (08:27)
[2018-03-21] MEDS: ARTIFICIAL TEARS 15 ML OPH BOTH EYES ×4 (08:28→20:55)
[2018-03-21] MEDS: FLUCONAZOLE 100 MG TAB GTB (08:28)
[2018-03-21] MEDS: RIFAXIMIN 550 MG TAB PO ×2 (08:29→20:56)
[2018-03-21] MEDS: BALSAM PERU/CASTOR OIL 60 GM TUBE TOP ×2 (08:29→20:55)
[2018-03-21] MEDS: MICONAZOLE 2% 30 GM CR TOP ×2 (08:29→20:54)
[2018-03-21] MEDS: SPIRONOLACTONE 25 MG TAB NGT (08:29)
[2018-03-21] MEDS: DIPHENHYDRAMINE 1%/ZINC 28.3 GM CR TOP ×2 (08:29→20:53)
[2018-03-21] MEDS: FOLIC ACID 1 MG TAB GTB (08:29)
[2018-03-21] MEDS: INSULIN GLARGINE [LANtus] 3 ML PEN SC (08:41)
[2018-03-21 09:17] LABS: ANISOCYTOSIS 1+ (0-0); BAND NEUTROPHILS #M 1.3 10^3/ul (0.0-0.6); BAND NEUTROPHILS % (M) 11 % (0-4); EOSINOPHILS % (M) 1 % (0-7); ERYTHROBLAST% (NRBC) (M) 52 % (0-0); GIANT THROMBO% (M) 4 % (0-0); LYMPHOCYTES #M 1.3 10^3/ul (0.8-2.9); LYMPHOCYTES % (M) 11 % (15-51); MONOCYTE #M 0.8 10^3/ul (0.3-0.9); MONOCYTES % (M) 7 % (0-11); PLATELET ESTIMATE SIG DECREASED; POIKILOCYTOSIS 2+ (0-0); POLYCHROMASIA 1+ (0-0); REACTIVE LYMPHOCYTES #M 0.2 10^3/ul (0.0-0.0); REACTIVE LYMPHOCYTES% (M) 2 % (0-0); SEG NEUT #M 8.7 10^3/ul (1.6-7.5); SEGMENTED NEUTROPHILS (M) % 68 % (39-77); SMUDGE%M 30 % (0-0)
[2018-03-21] MEDS: SILVER SULFADIAZINE 1% 25 GM CR TOP (12:14)
[2018-03-21] MEDS: BUMETANIDE 1 MG INJ IV (18:03)
[2018-03-22] MEDS: ALBUTEROL HFA 8 GM INHALER INH ×4 (01:02→19:15)
[2018-03-22] MEDS: LEVOTHYROXINE 25 MCG TAB GTB (05:34)
[2018-03-22] MEDS: ERYTHROMYCIN BASE (EC) 250 MG TAB PO ×3 (05:34→20:52)
[2018-03-22] MEDS: BUMETANIDE 1 MG INJ IV ×2 (05:35→18:09)
[2018-03-22] MEDS: METOCLOPRAMIDE 10 MG INJ IV ×4 (05:35→23:53)
[2018-03-22] MEDS: INSULIN ASPART [NOVOLOG] 3 ML PEN SC ×4 (06:00→23:51)
[2018-03-22 07:08] LABS: WHITE BLOOD COUNT 13.2 10^3/ul (4.8-10.8)
[2018-03-22 07:08] LABS: ABNORMAL IP MESSAGE 1; HEMATOCRIT 28.4 % (42.0-52.0); HEMOGLOBIN 9.1 g/dl (14.0-18.0); MEAN CORPUSCULAR HEMOGLOBIN 28.9 pg (29.0-33.0); MEAN CORPUSCULAR VOLUME 90.2 fl (82.0-101.0); MEAN PLATELET VOLUME 11.6 fl (7.4-10.4); NUCLEATED RED BLOOD CELLS% 30.2 /100WBC (0.0-0.0); PLATELET COUNT 49 10^3/UL (140-415); POSITIVE DIFF @See below; RED BLOOD COUNT 3.15 10^6/ul (4.70-6.10)
[2018-03-22 07:12] LABS: ADD MAN DIFF? YES
[2018-03-22 07:41] LABS: ANION GAP 16 (8-16); BLOOD UREA NITROGEN 68 mg/dl (7-20); CALCIUM 9.5 mg/dl (8.4-10.2); CARBON DIOXIDE 20 mmol/L (21-31); CHLORIDE 98 mmol/L (97-110); CREATININE 1.44 mg/dl (0.61-1.24); GLUCOSE 113 mg/dl (70-220); MAGNESIUM 3.3 mg/dl (1.7-2.5); PHOSPHORUS 4.8 mg/dl (2.5-4.9); POTASSIUM 4.1 mmol/L (3.5-5.1); SODIUM 130 mmol/L (135-144)
[2018-03-22] MEDS: INSULIN GLARGINE [LANtus] 3 ML PEN SC (08:01)
[2018-03-22] MEDS: LACTULOSE 30ML CUP GTB ×2 (08:25→20:52)
[2018-03-22] MEDS: FOLIC ACID 1 MG TAB GTB (08:37)
[2018-03-22] MEDS: PANTOPRAZOLE 40 MG INJ IV ×2 (08:37→20:52)
[2018-03-22] MEDS: LORATADINE 10 MG TAB GTB (08:37)
[2018-03-22] MEDS: MIDODRINE 5 MG TAB PO ×3 (08:37→18:09)
[2018-03-22] MEDS: FLUCONAZOLE 100 MG TAB GTB (08:37)
[2018-03-22] MEDS: ACYCLOVIR 200 MG CAP GTB ×2 (08:37→20:52)
[2018-03-22] MEDS: ARTIFICIAL TEARS 15 ML OPH BOTH EYES ×4 (08:43→20:51)
[2018-03-22] MEDS: ACETAZOLAMIDE 500 MG INJ IV (08:43)
[2018-03-22] MEDS: RIFAXIMIN 550 MG TAB PO ×2 (08:44→20:52)
[2018-03-22] MEDS: MICONAZOLE 2% 30 GM CR TOP ×2 (08:44→20:51)
[2018-03-22] MEDS: PYRIDOXINE 50 MG TAB GTB (08:44)
[2018-03-22] MEDS: SPIRONOLACTONE 25 MG TAB NGT (08:44)
[2018-03-22] MEDS: CHLORHEXIDINE GLUCONATE 15 ML UD CUP MT ×2 (08:44→20:51)
[2018-03-22] MEDS: DIPHENHYDRAMINE 1%/ZINC 28.3 GM CR TOP ×2 (08:44→20:51)
[2018-03-22] MEDS: BALSAM PERU/CASTOR OIL 60 GM TUBE TOP ×2 (08:44→20:51)
[2018-03-22 10:40] LABS: ANISOCYTOSIS 1+ (0-0); BAND NEUTROPHILS #M 1.4 10^3/ul (0.0-0.6); BAND NEUTROPHILS % (M) 11 % (0-4); EOSINOPHILS % (M) 1 % (0-7); ERYTHROBLAST% (NRBC) (M) 25 % (0-0); GIANT THROMBO% (M) 3 % (0-0); LYMPHOCYTES #M 2.2 10^3/ul (0.8-2.9); LYMPHOCYTES % (M) 17 % (15-51); MONOCYTE #M 2.2 10^3/ul (0.3-0.9); MONOCYTES % (M) 17 % (0-11); MYELOCYTES #M 0.1 10^3/ul (0.0-0.0); MYELOCYTES % (M) 1 % (0-0); PLATELET ESTIMATE DECREASED; POIKILOCYTOSIS 3+ (0-0); POLYCHROMASIA 2+ (0-0); SEG NEUT #M 7.3 10^3/ul (1.6-7.5); SEGMENTED NEUTROPHILS (M) % 54 % (39-77); SMUDGE%M 6 % (0-0)
[2018-03-23] MEDS: ALBUTEROL HFA 8 GM INHALER INH ×5 (03:53→20:28)
[2018-03-23] MEDS: METOCLOPRAMIDE 10 MG INJ IV ×4 (05:10→23:08)
[2018-03-23] MEDS: BUMETANIDE 1 MG INJ IV ×2 (05:10→17:15)
[2018-03-23] MEDS: LEVOTHYROXINE 25 MCG TAB GTB (05:11)
[2018-03-23] MEDS: ERYTHROMYCIN BASE (EC) 250 MG TAB PO ×3 (05:14→22:58)
[2018-03-23] MEDS: INSULIN ASPART [NOVOLOG] 3 ML PEN SC ×3 (05:18→17:35)
[2018-03-23] MEDS: INSULIN GLARGINE [LANtus] 3 ML PEN SC (08:00)
[2018-03-23] MEDS: LACTULOSE 30ML CUP GTB ×2 (09:00→23:10)
[2018-03-23 09:22] LABS: ABNORMAL IP MESSAGE 1; HEMATOCRIT 28.6 % (42.0-52.0); MEAN CORPUSCULAR HEMOGLOBIN 28.8 pg (29.0-33.0); MEAN CORPUSCULAR HGB CONC 31.5 g/dl (32.0-37.0); MEAN CORPUSCULAR VOLUME 91.7 fl (82.0-101.0); MEAN PLATELET VOLUME 12.1 fl (7.4-10.4); NUCLEATED RED BLOOD CELLS% 31.6 /100WBC (0.0-0.0); POSITIVE DIFF @See below; RED BLOOD COUNT 3.12 10^6/ul (4.70-6.10); RED CELL DISTRIBUTION WIDTH 20.3 % (11.5-14.5)
[2018-03-23 09:22] LABS: WHITE BLOOD COUNT 12.6 10^3/ul (4.8-10.8)
[2018-03-23 09:33] LABS: ADD MAN DIFF? YES; PLATELET COUNT 27 10^3/UL (140-415)
[2018-03-23 09:35] LABS: ANION GAP 14 (8-16); BLOOD UREA NITROGEN 77 mg/dl (7-20); CALCIUM 9.5 mg/dl (8.4-10.2); CARBON DIOXIDE 22 mmol/L (21-31); CHLORIDE 99 mmol/L (97-110); CREATININE 1.51 mg/dl (0.61-1.24); GLUCOSE 129 mg/dl (70-220); MAGNESIUM 3.4 mg/dl (1.7-2.5); PHOSPHORUS 4.8 mg/dl (2.5-4.9); POTASSIUM 4.2 mmol/L (3.5-5.1); SODIUM 131 mmol/L (135-144)
[2018-03-23] MEDS: CHLORHEXIDINE GLUCONATE 15 ML UD CUP MT ×2 (09:43→23:08)
[2018-03-23] MEDS: DIPHENHYDRAMINE 1%/ZINC 28.3 GM CR TOP ×2 (09:44→22:58)
[2018-03-23] MEDS: ACYCLOVIR 200 MG CAP GTB ×2 (09:44→22:58)
[2018-03-23] MEDS: FOLIC ACID 1 MG TAB GTB (09:44)
[2018-03-23] MEDS: ACETAZOLAMIDE 500 MG INJ IV (09:44)
[2018-03-23] MEDS: FLUCONAZOLE 100 MG TAB GTB (09:44)
[2018-03-23] MEDS: ARTIFICIAL TEARS 15 ML OPH BOTH EYES ×4 (09:45→22:58)
[2018-03-23] MEDS: BALSAM PERU/CASTOR OIL 60 GM TUBE TOP ×2 (09:45→22:57)
[2018-03-23] MEDS: MICONAZOLE 2% 30 GM CR TOP (09:45)
[2018-03-23 09:47] LABS: ANISOCYTOSIS 1+ (0-0); BAND NEUTROPHILS #M 0.6 10^3/ul (0.0-0.6); BAND NEUTROPHILS % (M) 5 % (0-4); BURR CELLS 3+ (0-0); EOSINOPHILS % (M) 2 % (0-7); ERYTHROBLAST% (NRBC) (M) 49 % (0-0); GIANT THROMBO% (M) 11 % (0-0); LYMPHOCYTES #M 1.6 10^3/ul (0.8-2.9); LYMPHOCYTES % (M) 13 % (15-51); MONOCYTE #M 0.8 10^3/ul (0.3-0.9); MONOCYTES % (M) 7 % (0-11); PLATELET ESTIMATE SIG DECREASED; POIKILOCYTOSIS 3+ (0-0); POLYCHROMASIA 1+ (0-0); SEG NEUT #M 9.3 10^3/ul (1.6-7.5); SEGMENTED NEUTROPHILS (M) % 73 % (39-77); SMUDGE%M 12 % (0-0)
[2018-03-23] MEDS: SPIRONOLACTONE 25 MG TAB NGT (09:49)
[2018-03-23] MEDS: LORATADINE 10 MG TAB GTB (09:49)
[2018-03-23] MEDS: PYRIDOXINE 50 MG TAB GTB (09:49)
[2018-03-23] MEDS: PANTOPRAZOLE 40 MG INJ IV ×2 (09:50→23:07)
[2018-03-23] MEDS: MIDODRINE 5 MG TAB PO ×3 (09:50→17:14)
[2018-03-23] MEDS: RIFAXIMIN 550 MG TAB PO ×2 (09:51→22:58)
[2018-03-23] MEDS: SILVER SULFADIAZINE 1% 25 GM CR TOP (13:06)
[2018-03-23 18:26] LABS: TYPE AND SCREEN 1 1
[2018-03-24] MEDS: INSULIN ASPART [NOVOLOG] 3 ML PEN SC ×4 (00:11→16:35)
[2018-03-24] MEDS: ALBUTEROL HFA 8 GM INHALER INH ×4 (01:39→19:56)
[2018-03-24] MEDS: BUMETANIDE 1 MG INJ IV ×2 (05:39→16:35)
[2018-03-24] MEDS: LEVOTHYROXINE 25 MCG TAB GTB (05:39)
[2018-03-24] MEDS: ERYTHROMYCIN BASE (EC) 250 MG TAB PO ×3 (05:39→22:42)
[2018-03-24] MEDS: METOCLOPRAMIDE 10 MG INJ IV ×3 (05:39→16:34)
[2018-03-24 07:35] LABS: ABNORMAL IP MESSAGE 1; HEMATOCRIT 25.4 % (42.0-52.0); MEAN CORPUSCULAR HEMOGLOBIN 28.8 pg (29.0-33.0); MEAN CORPUSCULAR HGB CONC 31.5 g/dl (32.0-37.0); MEAN CORPUSCULAR VOLUME 91.4 fl (82.0-101.0); MEAN PLATELET VOLUME 10.9 fl (7.4-10.4); NUCLEATED RED BLOOD CELLS% 27.5 /100WBC (0.0-0.0); PLATELET COUNT 60 10^3/UL (140-415); POSITIVE DIFF @See below; RED BLOOD COUNT 2.78 10^6/ul (4.70-6.10); RED CELL DISTRIBUTION WIDTH 20.4 % (11.5-14.5)
[2018-03-24 07:35] LABS: WHITE BLOOD COUNT 12.8 10^3/ul (4.8-10.8)
[2018-03-24 07:37] LABS: ADD MAN DIFF? YES
[2018-03-24] MEDS: INSULIN GLARGINE [LANtus] 3 ML PEN SC ×2 (07:44→08:00)
[2018-03-24] MEDS: CHLORHEXIDINE GLUCONATE 15 ML UD CUP MT ×2 (08:31→22:42)
[2018-03-24] MEDS: LACTULOSE 30ML CUP GTB ×2 (08:31→22:42)
[2018-03-24 08:32] LABS: ANION GAP 14 (8-16); BLOOD UREA NITROGEN 81 mg/dl (7-20); CALCIUM 9.2 mg/dl (8.4-10.2); CARBON DIOXIDE 21 mmol/L (21-31); CHLORIDE 97 mmol/L (97-110); CREATININE 1.49 mg/dl (0.61-1.24); GLUCOSE 121 mg/dl (70-220); MAGNESIUM 3.2 mg/dl (1.7-2.5); PHOSPHORUS 4.9 mg/dl (2.5-4.9); POTASSIUM 4.4 mmol/L (3.5-5.1); SODIUM 128 mmol/L (135-144)
[2018-03-24] MEDS: ARTIFICIAL TEARS 15 ML OPH BOTH EYES ×4 (08:32→22:41)
[2018-03-24] MEDS: PANTOPRAZOLE 40 MG INJ IV ×2 (08:32→22:41)
[2018-03-24] MEDS: FLUCONAZOLE 100 MG TAB GTB (08:32)
[2018-03-24] MEDS: LORATADINE 10 MG TAB GTB (08:32)
[2018-03-24] MEDS: MICONAZOLE 2% 30 GM CR TOP ×2 (08:32→22:46)
[2018-03-24] MEDS: DIPHENHYDRAMINE 1%/ZINC 28.3 GM CR TOP ×2 (08:32→22:42)
[2018-03-24] MEDS: ACYCLOVIR 200 MG CAP GTB ×2 (08:32→22:50)
[2018-03-24] MEDS: RIFAXIMIN 550 MG TAB PO ×2 (08:32→22:42)
[2018-03-24] MEDS: SPIRONOLACTONE 25 MG TAB NGT (08:32)
[2018-03-24] MEDS: FOLIC ACID 1 MG TAB GTB (08:32)
[2018-03-24] MEDS: PYRIDOXINE 50 MG TAB GTB (08:32)
[2018-03-24] MEDS: BALSAM PERU/CASTOR OIL 60 GM TUBE TOP ×2 (08:33→22:46)
[2018-03-24] MEDS: MIDODRINE 5 MG TAB PO (08:36)
[2018-03-24] MEDS: ACETAZOLAMIDE 500 MG INJ IV (08:37)
[2018-03-24 09:59] LABS: ANISOCYTOSIS 1+ (0-0); BAND NEUTROPHILS #M 0.7 10^3/ul (0.0-0.6); BAND NEUTROPHILS % (M) 6 % (0-4); EOSINOPHILS % (M) 1 % (0-7); ERYTHROBLAST% (NRBC) (M) 36 % (0-0); GIANT THROMBO% (M) 9 % (0-0); LYMPHOCYTES #M 0.5 10^3/ul (0.8-2.9); LYMPHOCYTES % (M) 4 % (15-51); MONOCYTE #M 0.6 10^3/ul (0.3-0.9); MONOCYTES % (M) 5 % (0-11); PLATELET ESTIMATE SIG DECREASED; POIKILOCYTOSIS 3+ (0-0); POLYCHROMASIA 3+ (0-0); REACTIVE LYMPHOCYTES #M 0.2 10^3/ul (0.0-0.0); REACTIVE LYMPHOCYTES% (M) 2 % (0-0); SEG NEUT #M 10.6 10^3/ul (1.6-7.5); SEGMENTED NEUTROPHILS (M) % 82 % (39-77); SMUDGE%M 16 % (0-0)
[2018-03-24] MEDS: MIDODRINE 2.5 MG TAB PO ×2 (13:26→16:35)
[2018-03-25] MEDS: METOCLOPRAMIDE 10 MG INJ IV ×5 (00:06→23:29)
[2018-03-25] MEDS: ALBUTEROL HFA 8 GM INHALER INH ×2 (01:54→19:41)
[2018-03-25] MEDS: ERYTHROMYCIN BASE (EC) 250 MG TAB PO ×3 (05:30→21:45)
[2018-03-25] MEDS: LEVOTHYROXINE 25 MCG TAB GTB (05:30)
[2018-03-25] MEDS: BUMETANIDE 1 MG INJ IV ×3 (05:32→17:48)
[2018-03-25] MEDS: INSULIN ASPART [NOVOLOG] 3 ML PEN SC ×5 (06:05→23:43)
[2018-03-25] MEDS ORDERED: INSULIN GLARGINE [LANtus] 3 ML PEN SC (08:00)
[2018-03-25] MEDS: CHLORHEXIDINE GLUCONATE 15 ML UD CUP MT ×2 (08:12→21:46)
[2018-03-25] MEDS: FLUCONAZOLE 100 MG TAB GTB (08:12)
[2018-03-25] MEDS: LACTULOSE 30ML CUP GTB ×2 (08:12→21:00)
[2018-03-25] MEDS: PYRIDOXINE 50 MG TAB GTB (08:12)
[2018-03-25] MEDS: SPIRONOLACTONE 25 MG TAB NGT (08:13)
[2018-03-25] MEDS: MIDODRINE 2.5 MG TAB PO ×3 (08:13→17:48)
[2018-03-25] MEDS: ACYCLOVIR 200 MG CAP GTB ×2 (08:13→21:46)
[2018-03-25] MEDS: ACETAZOLAMIDE 500 MG INJ IV (08:13)
[2018-03-25] MEDS: PANTOPRAZOLE 40 MG INJ IV ×2 (08:13→21:47)
[2018-03-25] MEDS: FOLIC ACID 1 MG TAB GTB (08:13)
[2018-03-25] MEDS: LORATADINE 10 MG TAB GTB (08:13)
[2018-03-25] MEDS: RIFAXIMIN 550 MG TAB PO ×2 (08:13→21:46)
[2018-03-25] MEDS: DIPHENHYDRAMINE 1%/ZINC 28.3 GM CR TOP ×2 (08:14→21:48)
[2018-03-25] MEDS: MICONAZOLE 2% 30 GM CR TOP ×2 (08:14→21:48)
[2018-03-25] MEDS: BALSAM PERU/CASTOR OIL 60 GM TUBE TOP ×2 (08:14→21:48)
[2018-03-25] MEDS: ARTIFICIAL TEARS 15 ML OPH BOTH EYES ×4 (08:14→21:47)
[2018-03-25 08:33] LABS: ABNORMAL IP MESSAGE 1; HEMOGLOBIN 7.3 g/dl (14.0-18.0); MEAN CORPUSCULAR HEMOGLOBIN 27.9 pg (29.0-33.0); MEAN CORPUSCULAR HGB CONC 30.4 g/dl (32.0-37.0); MEAN CORPUSCULAR VOLUME 91.6 fl (82.0-101.0); MEAN PLATELET VOLUME 12.4 fl (7.4-10.4); NUCLEATED RED BLOOD CELLS% 22.1 /100WBC (0.0-0.0); PLATELET COUNT 40 10^3/UL (140-415); POSITIVE DIFF @See below; RED BLOOD COUNT 2.62 10^6/ul (4.70-6.10); RED CELL DISTRIBUTION WIDTH 20.4 % (11.5-14.5)
[2018-03-25 08:36] LABS: ADD MAN DIFF? YES
[2018-03-25 09:03] LABS: ANION GAP 14 (8-16); BLOOD UREA NITROGEN 99 mg/dl (7-20); CALCIUM 8.8 mg/dl (8.4-10.2); CARBON DIOXIDE 23 mmol/L (21-31); CHLORIDE 98 mmol/L (97-110); CREATININE 1.92 mg/dl (0.61-1.24); GLUCOSE 118 mg/dl (70-220); MAGNESIUM 3.5 mg/dl (1.7-2.5); PHOSPHORUS 4.8 mg/dl (2.5-4.9); POTASSIUM 4.9 mmol/L (3.5-5.1); SODIUM 130 mmol/L (135-144)
[2018-03-25] MEDS: INSULIN GLARGINE [LANtus] 3 ML PEN SC (09:58)
[2018-03-25] MEDS: SILVER SULFADIAZINE 1% 25 GM CR TOP (11:52)
[2018-03-25] MEDS: LINEZOLID 600 MG/D5W (PMX) 300 ML IVPB ×2 (14:48→21:49)
[2018-03-25] MEDS: MEROPENEM 500MG/50 ML (PMX) 50 ML IVPB ×2 (14:49→23:29)
[2018-03-25 16:54] LABS: HEPATITIS B SURFACE ANTIGEN NEGATIVE (NEGATIVE)
[2018-03-25 17:13] LABS: HEPATITIS B SURFACE ANTIBODY POSITIVE (NEGATIVE)
[2018-03-26] MEDS: ALBUTEROL HFA 8 GM INHALER INH ×4 (03:08→19:36)
[2018-03-26] MEDS: BUMETANIDE 1 MG INJ IV ×2 (05:30→17:04)
[2018-03-26] MEDS: ERYTHROMYCIN BASE (EC) 250 MG TAB PO ×3 (05:38→21:26)
[2018-03-26] MEDS: LEVOTHYROXINE 25 MCG TAB GTB (05:38)
[2018-03-26] MEDS: METOCLOPRAMIDE 10 MG INJ IV ×3 (05:38→17:50)
[2018-03-26] MEDS: INSULIN ASPART [NOVOLOG] 3 ML PEN SC ×3 (05:48→18:00)
[2018-03-26] MEDS ORDERED: NORepinephrine 8MG/250 ML BAG (07:00)
[2018-03-26] MEDS: NORepinephrine 8MG/250 ML (PMX 250 ML IV (07:15)
[2018-03-26] MEDS ORDERED: DOPamine-D5W 1.6 MG/ML 250 ML (07:24)
[2018-03-26] MEDS: DOPamine-D5W 1.6 MG/ML 250 ML IV ×2 (07:30→20:55)
[2018-03-26] MEDS ORDERED: DOPamine 1,600 MG in DEXTROSE 5% 210 ML IV (07:30)
[2018-03-26] MEDS ORDERED: NORepinephrine 32 MG in DEXTROSE 5% 218 ML IV (07:30)
[2018-03-26 07:47] LABS: ABNORMAL IP MESSAGE 1; HEMATOCRIT 25.1 % (42.0-52.0); MEAN CORPUSCULAR HEMOGLOBIN 29.5 pg (29.0-33.0); MEAN CORPUSCULAR HGB CONC 31.9 g/dl (32.0-37.0); MEAN CORPUSCULAR VOLUME 92.6 fl (82.0-101.0); MEAN PLATELET VOLUME 11.6 fl (7.4-10.4); NUCLEATED RED BLOOD CELLS% 8.6 /100WBC (0.0-0.0); PLATELET COUNT 38 10^3/UL (140-415); POSITIVE DIFF @See below; RED BLOOD COUNT 2.71 10^6/ul (4.70-6.10); RED CELL DISTRIBUTION WIDTH 20.3 % (11.5-14.5)
[2018-03-26 07:47] LABS: WHITE BLOOD COUNT 14.7 10^3/ul (4.8-10.8)
[2018-03-26 07:57] LABS: ADD MAN DIFF? YES
[2018-03-26] MEDS: INSULIN GLARGINE [LANtus] 3 ML PEN SC (08:00)
[2018-03-26 08:02] LABS: ANION GAP 16 (8-16); BLOOD UREA NITROGEN 105 mg/dl (7-20); CALCIUM 8.9 mg/dl (8.4-10.2); CARBON DIOXIDE 22 mmol/L (21-31); CHLORIDE 95 mmol/L (97-110); CREATININE 2.06 mg/dl (0.61-1.24); GLUCOSE 161 mg/dl (70-220); MAGNESIUM 3.6 mg/dl (1.7-2.5); PHOSPHORUS 5.6 mg/dl (2.5-4.9); POTASSIUM 4.9 mmol/L (3.5-5.1); SODIUM 128 mmol/L (135-144)
[2018-03-26 08:06] LABS: PROTIME 15.4 Sec (11.9-14.9); PT RATIO 1.2
[2018-03-26] MEDS: LORATADINE 10 MG TAB GTB (09:00)
[2018-03-26] MEDS: MIDODRINE 2.5 MG TAB PO ×3 (09:00→17:50)
[2018-03-26] MEDS: LINEZOLID 600 MG/D5W (PMX) 300 ML IVPB ×2 (09:33→21:23)
[2018-03-26] MEDS: ACYCLOVIR 200 MG CAP GTB ×2 (09:40→21:22)
[2018-03-26] MEDS: FOLIC ACID 1 MG TAB GTB (09:40)
[2018-03-26] MEDS: LACTULOSE 30ML CUP GTB ×2 (09:40→21:23)
[2018-03-26] MEDS: ACETAZOLAMIDE 500 MG INJ IV (09:40)
[2018-03-26] MEDS: SPIRONOLACTONE 25 MG TAB NGT (09:40)
[2018-03-26] MEDS: CHLORHEXIDINE GLUCONATE 15 ML UD CUP MT ×2 (09:40→21:22)
[2018-03-26] MEDS: PANTOPRAZOLE 40 MG INJ IV ×2 (09:40→21:22)
[2018-03-26] MEDS: BALSAM PERU/CASTOR OIL 60 GM TUBE TOP ×2 (09:41→21:25)
[2018-03-26] MEDS: ARTIFICIAL TEARS 15 ML OPH BOTH EYES ×4 (09:41→21:23)
[2018-03-26] MEDS: MICONAZOLE 2% 30 GM CR TOP ×2 (09:42→21:24)
[2018-03-26] MEDS: DIPHENHYDRAMINE 1%/ZINC 28.3 GM CR TOP ×2 (09:42→21:24)
[2018-03-26 09:44] LABS: ANISOCYTOSIS 3+ (0-0); BAND NEUTROPHILS #M 0.7 10^3/ul (0.0-0.6); BAND NEUTROPHILS % (M) 5 % (0-4); ERYTHROBLAST% (NRBC) (M) 7 % (0-0); GIANT THROMBO% (M) 8 % (0-0); LYMPHOCYTES #M 3.5 10^3/ul (0.8-2.9); LYMPHOCYTES % (M) 24 % (15-51); METAMYELOCYTES #M 0.1 10^3/ul (0.0-0.0); METAMYELOCYTES %M 1 % (0-0); MICROCYTOSIS 1+ (0-0); MONOCYTES % (M) 7 % (0-11); PLATELET ESTIMATE SIG DECREASED; POIKILOCYTOSIS 3+ (0-0); POLYCHROMASIA 3+ (0-0); REACTIVE LYMPHOCYTES #M 0.2 10^3/ul (0.0-0.0); REACTIVE LYMPHOCYTES% (M) 2 % (0-0); SEG NEUT #M 9.1 10^3/ul (1.6-7.5); SEGMENTED NEUTROPHILS (M) % 61 % (39-77)
[2018-03-26] MEDS ORDERED: CASPOFUNGIN 50 MG in SOD CHLORIDE 0.9% 250 ML IVPB (10:00)
[2018-03-26 11:14] LABS: PARTIAL THROMBOPLASTIN TIME 100.9 Sec (25.0-35.0)
[2018-03-26] MEDS: CASPOFUNGIN 70 MG in SOD CHLORIDE 0.9% 250 ML IVPB (11:17)
[2018-03-26] MEDS ORDERED: PENDING SANTYL ORDER FOR WOUND CARE XX (12:30)
[2018-03-26] MEDS: PYRIDOXINE 50 MG TAB GTB (14:06)
[2018-03-26] MEDS: RIFAXIMIN 550 MG TAB PO ×2 (14:06→21:23)
[2018-03-26] MEDS: MEROPENEM 500MG/50 ML (PMX) 50 ML IVPB ×2 (14:07→22:24)
[2018-03-27] MEDS: METOCLOPRAMIDE 10 MG INJ IV ×2 (00:26→05:26)
[2018-03-27] MEDS: INSULIN ASPART [NOVOLOG] 3 ML PEN SC ×2 (00:29→05:41)
[2018-03-27] MEDS: ALBUTEROL HFA 8 GM INHALER INH ×2 (01:44→09:04)
[2018-03-27] MEDS: DOPamine-D5W 1.6 MG/ML 250 ML IV ×2 (02:23→07:26)
[2018-03-27 04:57] LABS: ADD MAN DIFF? NO
[2018-03-27 05:00] LABS: WHITE BLOOD COUNT 13.7 10^3/ul (4.8-10.8)
[2018-03-27 05:00] LABS: ABNORMAL IP MESSAGE 1; BASOPHILS % 0.1 % (0.0-2.0); EOSINOPHILS % 0.3 % (0.0-7.0); HEMOGLOBIN 8.6 g/dl (14.0-18.0); LYMPHOCYTES # 1.1 10^3/ul (0.8-2.9); LYMPHOCYTES % 7.8 % (15.0-51.0); MEAN CORPUSCULAR HEMOGLOBIN 29.4 pg (29.0-33.0); MEAN CORPUSCULAR HGB CONC 31.9 g/dl (32.0-37.0); MEAN CORPUSCULAR VOLUME 92.2 fl (82.0-101.0); MEAN PLATELET VOLUME 11.7 fl (7.4-10.4); MONOCYTE # 3.5 10^3/ul (0.3-0.9); NEUTROPHILS % 65.5 % (39.0-77.0); NUCLEATED RED BLOOD CELLS # 1.2 10^3/ul (0.0-0.0); NUCLEATED RED BLOOD CELLS% 8.7 /100WBC (0.0-0.0); POSITIVE DIFF @See below; RED BLOOD COUNT 2.93 10^6/ul (4.70-6.10); RED CELL DISTRIBUTION WIDTH 20.1 % (11.5-14.5)
[2018-03-27] MEDS: BUMETANIDE 1 MG INJ IV (05:14)
[2018-03-27] MEDS: ERYTHROMYCIN BASE (EC) 250 MG TAB PO (05:16)
[2018-03-27 05:19] LABS: MONOCYTES % 25.4 % (0.0-11.0)
[2018-03-27 05:21] LABS: PLATELET COUNT 26 10^3/UL (140-415)
[2018-03-27] MEDS: LEVOTHYROXINE 25 MCG TAB GTB (05:26)
[2018-03-27 05:36] LABS: ANION GAP 19 (8-16); BLOOD UREA NITROGEN 110 mg/dl (7-20); CALCIUM 9.1 mg/dl (8.4-10.2); CARBON DIOXIDE 21 mmol/L (21-31); CHLORIDE 94 mmol/L (97-110); GLUCOSE 166 mg/dl (70-220); MAGNESIUM 3.5 mg/dl (1.7-2.5); PHOSPHORUS 6.2 mg/dl (2.5-4.9); POTASSIUM 5.3 mmol/L (3.5-5.1); SODIUM 129 mmol/L (135-144)
[2018-03-27] MEDS: ACYCLOVIR 200 MG CAP GTB (08:43)
[2018-03-27] MEDS: LORATADINE 10 MG TAB GTB (08:43)
[2018-03-27] MEDS: LINEZOLID 600 MG/D5W (PMX) 300 ML IVPB (08:43)
[2018-03-27] MEDS: PANTOPRAZOLE 40 MG INJ IV (08:43)
[2018-03-27] MEDS: MEROPENEM 500MG/50 ML (PMX) 50 ML IVPB (08:43)
[2018-03-27] MEDS: RIFAXIMIN 550 MG TAB PO (08:43)
[2018-03-27] MEDS: PYRIDOXINE 50 MG TAB GTB (08:44)
[2018-03-27] MEDS: LACTULOSE 30ML CUP GTB (08:44)
[2018-03-27] MEDS: CHLORHEXIDINE GLUCONATE 15 ML UD CUP MT (08:44)
[2018-03-27] MEDS: FOLIC ACID 1 MG TAB GTB (08:44)
[2018-03-27] MEDS: ACETAZOLAMIDE 500 MG INJ IV (08:45)
[2018-03-27] MEDS: ARTIFICIAL TEARS 15 ML OPH BOTH EYES (08:45)
[2018-03-27] MEDS: DIPHENHYDRAMINE 1%/ZINC 28.3 GM CR TOP (08:46)
[2018-03-27] MEDS: SPIRONOLACTONE 25 MG TAB NGT (08:46)
[2018-03-27] MEDS: BALSAM PERU/CASTOR OIL 60 GM TUBE TOP (08:47)
[2018-03-27] MEDS: MICONAZOLE 2% 30 GM CR TOP (08:47)
[2018-03-27] MEDS: MIDODRINE 2.5 MG TAB PO (09:21)
[2018-03-27] MEDS: INSULIN GLARGINE [LANtus] 3 ML PEN SC (09:47)
[2018-03-27] MEDS: CASPOFUNGIN 50 MG in SOD CHLORIDE 0.9% 250 ML IVPB (10:59)
[2018-03-27] MEDS: morphine (DRIP) 100 MG/100 ML 100 ML IV (12:41)
== END 2018-03-27 14:00 | disposition expired | DRG 377 ==
LOC: ICU 09:00 → TEL 03-05 20:34 → ICU 03-26 07:06
PROVIDERS: Internal Medicine
PROC: 0W3P8ZZ Control Bleeding in Gastrointestinal Tract, Via Natural or Artificial Opening Endoscopic (ICD-10-PCS; principal; 2018-03-03 08:50)
PROC: 5A1955Z Respiratory Ventilation, Greater than 96 Consecutive Hours (ICD-10-PCS; 2018-03-03 08:50)
PROC: 30233R1 Transfusion of Nonautologous Platelets into Peripheral Vein, Percutaneous Approach (ICD-10-PCS; 2018-03-03 08:50)
PROC: 30233N1 Transfusion of Nonautologous Red Blood Cells into Peripheral Vein, Percutaneous Approach (ICD-10-PCS; 2018-03-03 08:50)
PROC: 02H633Z Insertion of Infusion Device into Right Atrium, Percutaneous Approach (ICD-10-PCS; 2018-03-03 08:50)
DX: K31.811 Angiodysplasia of stomach and duodenum with bleeding (principal); L89.153 Pressure ulcer of sacral region, stage 3; G92 Toxic encephalopathy; I50.33 Acute on chronic diastolic (congestive) heart failure; J18.9 Pneumonia, unspecified organism; A41.9 Sepsis, unspecified organism; R65.21 Severe sepsis with septic shock; N17.0 Acute kidney failure with tubular necrosis; D62 Acute posthemorrhagic anemia; N17.9 Acute kidney failure, unspecified; E46 Unspecified protein-calorie malnutrition; B37.49 Other urogenital candidiasis; J96.10 Chronic respiratory failure, unspecified whether with hypoxia or hypercapnia; I13.0 Hypertensive heart and chronic kidney disease with heart failure and stage 1 through stage 4 chronic kidney disease, or unspecified chronic kidney disease; I51.81 Takotsubo syndrome; R65.10 Systemic inflammatory response syndrome (SIRS) of non-infectious origin without acute organ dysfunction; B48.8 Other specified mycoses; D69.6 Thrombocytopenia, unspecified; K70.30 Alcoholic cirrhosis of liver without ascites; N18.9 Chronic kidney disease, unspecified; Z68.23 Body mass index [BMI] 23.0-23.9, adult; Z66 Do not resuscitate; K55.20 Angiodysplasia of colon without hemorrhage; Z93.0 Tracheostomy status; R13.10 Dysphagia, unspecified; Z93.1 Gastrostomy status; H91.90 Unspecified hearing loss, unspecified ear; Z85.6 Personal history of leukemia; Z86.718 Personal history of other venous thrombosis and embolism; Z79.899 Other long term (current) drug therapy; R31.9 Hematuria, unspecified; E87.6 Hypokalemia; K72.90 Hepatic failure, unspecified without coma; T68.XXXA Hypothermia, initial encounter
CPT/HCPCS: 36430; 36556; 36600; 70450; 71045; 74018; 80048; 80053; 81001; 81003; 82043; 82140; 82533; 82803; 82962; 83605; 83735; 84100; 84155; 84300; 84443; 84484; 85014; 85018; 85025; 85384; 85610; 85730; 86635; 86644; 86706; 86850; 86900; 86901; 86920; 86945; 87040; 87081; 87086; 87340; 93005; 93306; 93971; 94003; 94640; 94664; J1120